=== PATIENT | female | born 1965 | race Two or more races ===

== ENCOUNTER 2020-08-01 08:27 | Outpatient (REF) | payer OTHER, SELFPAY ==
[2020-08-01 10:34] LABS: Free T4 (Free Thyroxine) 0.89 ng/dL (0.71-1.85); Thyroid Stimulating Hormone 1.27 uIU/mL (0.32-4.0)
[2020-08-02 18:32] LABS: Thyroglobulin Antibodies 2 IU/mL (< or = 1); Thyroid Peroxidase Antibodies 814 IU/mL (<9)
== END 2020-08-01 08:28 | disposition home or self-care (01) ==
LOC: HO.LAB 08:27
PROVIDERS: PCP Internal Medicine; Visit Provider Internal Medicine Endocrinology, Diabetes & Metabolism
DX: E03.9 Hypothyroidism, unspecified (principal); E04.1 Nontoxic single thyroid nodule; Z87.891 Personal history of nicotine dependence; Z90.710 Acquired absence of both cervix and uterus; Z95.0 Presence of cardiac pacemaker; Z79.899 Other long term (current) drug therapy
CPT/HCPCS: 36415; 84439; 84443; 86376; 86800; 99202

== ENCOUNTER 2020-08-16 14:10 | Outpatient (REF) | payer OTHER, SELFPAY ==
--- NOTE | ~2020-08-16 | US_ITS ---
EXAMINATION: US THYROID CLINICAL INFORMATION: Nontoxic single thyroid nodule. COMPARISON: None TECHNIQUE: Linear transducer grayscale and color Doppler examination with attention to the region of the thyroid. FINDINGS: SIZE: Measurements of the thyroid lobes and nodules are given in sagittal, anteroposterior and transverse dimensions respectively. Right Thyroid Lobe: 4.80 x 1.73 x 1.30 cm, volume 5.68 mL. Parenchyma: The gland echotexture is heterogeneous. Thyroid vascularity is increased. Left Thyroid Lobe: 4.83 x 1.77 x 1.49 cm, volume 6.67 mL. Parenchyma: The gland echotexture is heterogeneous. Thyroid vascularity is increased. Isthmus: 0.50 cm in maximum AP dimension. Estimated total number of nodules greater than or equal to 1 cm: 1. Merchandising Stock Associate nodules are described as follows: 1. Location: Isthmus. Size: 1.2 x 0.44 x 0.90 cm, volume 0.25 mL. Nodule characteristics: Composition: Solid (2). Echogenicity: Hypoechoic (2). Shape: Not taller than wide (0). Margins: Smooth (0). Echogenic Foci: None (0). ACR TI-RADS total points: 4 ACR TI-RADS category: 4 NODES: No lymphadenopathy is seen in the tissue surrounding the thyroid gland. US/US thyroid IMPRESSION: Heterogeneous hypervascular thyroid gland. Solitary isthmus nodule. According to TI RADS criteria, ultrasound follow-up in 1, 2, 3 and 5 years recommended. ACR TI-RADS RECOMMENDATION REFERENCE: Ultrasound-guided fine-needle aspiration, followup ultrasound, no further follow up. * TR1 (0 point) and TR 2 (2 points): No FNA or follow up * TR3 (3 points): FNA if more than or equal to 2.5 cm in maximum dimension, followup ultrasound in 1, 3 and 5 years if 1.5 to 2.4 cm in maximum dimension. * TR4 (4-6 points): FNA if more than or equal to 1.5 cm in maximum dimension, followup ultrasound in 1, 2, 3 and 5 years if 1 to 1.4 cm in maximum dimension. * TR5 (more than or equal to 7 points): FNA if more than or equal to 1 cm in maximum dimension, followup ultrasound every year for 5 years if 0.5 to 0.9 cm in maximum dimension. * TR3, TR4 or TR5 nodules that are below the size threshold for follow up receive no follow up.
== END 2020-08-16 14:11 | disposition home or self-care (01) ==
LOC: HO.HMGCX 14:10
PROVIDERS: PCP Internal Medicine; Visit Provider Internal Medicine Endocrinology, Diabetes & Metabolism
DX: E04.1 Nontoxic single thyroid nodule (principal); E03.9 Hypothyroidism, unspecified
CPT/HCPCS: 76536

== ENCOUNTER → 2020-08-29 10:45 | Outpatient (BNVA) | payer OTHER, SELFPAY | PROVIDERS: PCP Internal Medicine; Visit Provider Internal Medicine Endocrinology, Diabetes & Metabolism | DX: E03.8 Other specified hypothyroidism (principal); E04.1 Nontoxic single thyroid nodule; E06.3 Autoimmune thyroiditis | CPT/HCPCS: 99212 ==

== ENCOUNTER → 2020-09-05 08:06 | Outpatient (REF) | payer OTHER, SELFPAY ==
--- NOTE | ~2020-09-05 | NM_ITS ---
Myocardial perfusion study Indication: Abnormal EKG to evaluate for myocardial ischemia Technique: The patient was brought in for a Lexiscan perfusion study on 09/05/2020. Patient performed low-level exercise and was injected 0.4 mg of Lexiscan intravenously. Within a minute of injection, 30 mCi of sestamibi was given intravenously. Images were obtained using the SPECT gamma camera interlaced with the gating device. Images were obtained in supine position. Resting perfusion study was performed on 09/06/2020. Patient was administered 30 mCi of sestamibi intravenously at rest. Images were then obtained in supine position. Images obtained with and without CT attenuation. Total DLP 115 mGy-cm. Images were processed with the software and compared side to side in short axis, horizontal long axis and vertical long axis views. Findings: The stress perfusion study showed nonattenuated images show minimal thinning of the anterolateral wall of the LV myocardium. Remainder of the LV myocardium is normally perfused. Attenuation corrected images show mildly reduced uptake in the apex of the LV myocardium.. The gated study shows normal LV systolic function with calculated LVEF of 63%. LV cavity is normal in size. The gated study shows normal systolic wall thickening and contraction of segments. Resting study shows no change in perfusion pattern compared to stress perfusion study. Gating at rest reveals normal systolic wall motion with ejection fraction at 54%. The findings are consistent with normal myocardial perfusion. NM/NM shayna perf SPECT rest & str Impression: 1. Myocardial perfusion imaging study shows normal myocardial perfusion 2. Gated LVEF is 63% 3. Transient ischemic dilatation not present EKG is nondiagnostic for ischemia
--- NOTE | 2020-09-05 08:10 | CA_ITS ---
Acquisition Time: 2020-09-05 08:46:07 Total Exercise Time: 00:02:00 Test Indications: SOB CP Medications: NIFEDIPINE CAREDILOL Protocol: LEXISCAN Max HR: 083 BPM 50% of Pred: 166 BPM Max BP: 130/080 mmHG Max Work Load: 1.0 METS Pharmacological stress test with Lexiscan injection, while sitting and kicking her legs, without anginal symptoms, without arrythmia, with normotensive response to exercise, with nondiagnostic EKG for ischemia. Nuclear images pending. Test reviewed with Dr Mccarty. Referred By: Anton Zayas Overread By: PABLO GARCIA
== END ==
LOC: HO.CARD 08:06
PROVIDERS: PCP Internal Medicine; Visit Provider Internal Medicine Cardiovascular Disease
DX: R94.31 Abnormal electrocardiogram [ECG] [EKG] (principal)
CPT/HCPCS: 78452; 93017; A9500; J0280; J2785

== ENCOUNTER 2021-03-17 09:17 | Outpatient (REF) | payer OTHER, SELFPAY ==
--- NOTE | ~2021-03-17 | MM_ITS ---
EXAMINATION: MM SCREENING DIGITAL BREAST TOMOSYNTHESIS, BILATERAL CLINICAL INFORMATION: Screening. Asymptomatic. Prior yro-gm-qnbmz mammography currently unavailable. The lifetime risk of breast cancer based on the Tyrer-Cuzick Model is 7%. COMPARISON: None. TECHNIQUE: Digital breast tomosynthesis is performed in both the craniocaudal and mediolateral oblique views along with computer-aided detection (CAD). Synthesized 2D images are generated from the tomosynthesis. Additional left MLO and right CC views are provided. FINDINGS: The breasts are heterogeneously dense, which may obscure small masses (ACR BI-RADS breast composition Category c). There is a fine fibronodular parenchymal pattern. No significant mass or architectural abnormality. There are scattered punctate round and some coarse round calcifications scattered throughout both breasts. Ribbon shaped biopsy clip marker present left breast mid upper outer quadrant. There is pacemaker generator overlying and partly obscuring left axilla on MLO view. MM/MM tomosynthesis screening BI IMPRESSION: No mammographic evidence of malignancy. ASSESSMENT: BI-RADS 2: Benign RECOMMENDATION: 1. Routine annual mammography screening. 2. Radiology department staff will attempt to retrieve prior oiq-fu-vgicy mammography to allow for comparison in an addendum report. This patient's information was entered into a reminder system with a target due date for their next mammogram.
== END 2021-03-17 09:18 | disposition home or self-care (01) ==
LOC: HO.MAMMO 09:17
PROVIDERS: Visit Provider Internal Medicine
DX: Z12.31 Encounter for screening mammogram for malignant neoplasm of breast (principal)
CPT/HCPCS: 77063; 77067

== ENCOUNTER 2021-05-04 10:28 | Outpatient (REF) | payer OTHER, SELFPAY ==
--- NOTE | ~2021-05-04 | XR_ITS ---
EXAMINATION: XR LUMBOSACRAL SPINE CLINICAL INFORMATION: Lumbago with right-sided sciatica. COMPARISON: None TECHNIQUE: Three views of the lumbosacral spine. FINDINGS: Mild degenerative changes are present in the lumbosacral spine with some minimal narrowing at L3-L4 and L4-L5. There are spondylitic endplate changes with some mild sclerosis and osteophyte formation. Vertebral body heights are well maintained. No fractures or bony destructive lesions are seen. XR/XR lumbar spine 2-3V IMPRESSION: Mild degenerative changes seen predominantly at L3-L4 and L4-L5.
== END 2021-05-04 10:29 | disposition home or self-care (01) ==
LOC: HO.XRAY 10:28
PROVIDERS: PCP Internal Medicine; Visit Provider Family Medicine
DX: M54.41 Lumbago with sciatica, right side (principal); M54.42 Lumbago with sciatica, left side
CPT/HCPCS: 72100

== ENCOUNTER 2021-07-13 09:32 | Outpatient (REF) | payer OTHER, SELFPAY ==
--- NOTE | 2021-07-13 09:38 | EMG_ITS ---
Bilateral tibial and peroneal motor studies were performed. Bilateral superficial, peroneal, and sural sensory studies were performed. Tibial H reflexes were obtained and paraspinal muscles were tested with a needle. IMPRESSION: 1. 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 2. EMG finding suggestive of myotonic dystrophy. MD MICH Benítez/SUREKHA / [id number]
== END 2021-07-13 09:33 | disposition home or self-care (01) ==
LOC: HO.NEURO 09:32
PROVIDERS: PCP Internal Medicine; Visit Provider Family Medicine
DX: M54.41 Lumbago with sciatica, right side (principal); M54.42 Lumbago with sciatica, left side
CPT/HCPCS: 95886; 95911

== ENCOUNTER 2021-08-22 11:47 | Outpatient (REF) | payer OTHER, SELFPAY ==
--- NOTE | ~2021-08-22 | XR_ITS ---
EXAMINATION: XR CHEST CLINICAL INFORMATION: COPD. COMPARISON: None TECHNIQUE: 2 views of the chest were obtained. FINDINGS: The lungs are well expanded and clear of acute process. The heart size is enlarged. The pulmonary vascularity is normal. There are dual pacer electrodes in the right atrium and right ventricle. No gross bony abnormality seen. XR/XR chest 2V IMPRESSION: Unremarkable chest exam.
== END 2021-08-22 11:48 | disposition home or self-care (01) ==
LOC: HO.XRAY 11:47
PROVIDERS: PCP Internal Medicine; Visit Provider Internal Medicine
DX: R06.09 Other forms of dyspnea (principal); J44.9 Chronic obstructive pulmonary disease, unspecified
CPT/HCPCS: 71046; 99202

== ENCOUNTER 2021-08-30 07:30 | Outpatient (REF) | payer OTHER, SELFPAY ==
--- NOTE | ~2021-08-30 | US_ITS ---
EXAMINATION: US THYROID CLINICAL INFORMATION: Nontoxic single thyroid nodule. COMPARISON: Ultrasound soft tissue head/neck thyroid dated 08/16/2020. TECHNIQUE: Linear transducer grayscale and color Doppler examination with attention to the region of the thyroid. FINDINGS: SIZE: Measurements of the thyroid lobes and nodules are given in sagittal, anteroposterior and transverse dimensions respectively. Right Thyroid Lobe: 4.87 x 2.05 x 1.41 cm, volume 7.39 mL. Previously 4.80 x 1.73 x 1.30 cm, volume 5.68 mL. Parenchyma: The gland echotexture is heterogeneous. Thyroid vascularity is increased. Left Thyroid Lobe: 5.03 x 2.33 x 1.75 cm, volume 10.8 mL. Previously 4.3 x 1.77 x 1.49 cm, volume 6.67 mL. Parenchyma: The gland echotexture is heterogeneous. Thyroid vascularity is increased. Isthmus: 0.70 cm in maximum AP dimension. Previously 0.50 cm. Estimated total number of nodules greater than or equal to 1 cm: 1. Workers Compensation Analyst nodules are described as follows: 1. Location: Isthmus. Size: 1.0 x 0.95 x 0.50 cm, volume 0.23 mL. Previously: 1.2 x 0.90 x 0.44 cm, volume 0.25 mL. Nodule characteristics: Composition: Solid (2). Echogenicity: Isoechoic (1). Shape: Taller than wide (3). Margins: Smooth (0). Echogenic Foci: None (0). ACR TI-RADS total points: 6 Previous: 4 ACR TI-RADS category: 4 Previous: 4 Significant change in size (>/= 20% in 2 dimensions and minimal increase of 2 mm or 50% or greater increase in volume): Change in features: Change in ACR TI-RADS risk category: There is question of 2 additional nodules versus areas of gland heterogeneity. In retrospect, this is probably not appreciably changed from 2020 exam. 2. Location: Isthmus. Size: 0.60 x 0.30 x 0.70 cm, volume 0.06 mL. Previously: Not seen on the previous study. Nodule characteristics: Composition: Solid (2). Echogenicity: Isoechoic (1). Shape: Not taller than wide (0). Margins: Smooth (0). The previously identified left Echogenic Foci: None (0). ACR TI-RADS total points: 3 ACR TI-RADS category: 3 3. Location: Left inferior. Size: 0.60 x 0.70 x 0.50 cm, volume 0.11 mL. Previously: Not seen on the previous study. Nodule characteristics: Composition: Solid (2). Echogenicity: Hyperechoic (1). Shape: Taller than wide (3). Margins: Smooth (0). Echogenic Foci: None (0). ACR TI-RADS total points: 6 ACR TI-RADS category: 4 NODES: There are multiple small cervical lymph nodes seen bilaterally. These are normal in size and demonstrate normal ultrasound morphology and flow. US/US thyroid IMPRESSION: Heterogeneous hypervascular thyroid gland suggestive of thyroiditis. Stable small isthmus nodule. Question isthmus and left inferior pole nodules versus areas of gland heterogeneity. Small bilateral cervical lymph nodes. ACR TI-RADS RECOMMENDATION REFERENCE: Ultrasound-guided fine-needle aspiration, followup ultrasound, no further follow up. * TR1 (0 point) and TR 2 (2 points): No FNA or follow up * TR3 (3 points): FNA if more than or equal to 2.5 cm in maximum dimension, followup ultrasound in 1, 3 and 5 years if 1.5 to 2.4 cm in maximum dimension. * TR4 (4-6 points): FNA if more than or equal to 1.5 cm in maximum dimension, followup ultrasound in 1, 2, 3 and 5 years if 1 to 1.4 cm in maximum dimension. * TR5 (more than or equal to 7 points): FNA if more than or equal to 1 cm in maximum dimension, followup ultrasound every year for 5 years if 0.5 to 0.9 cm in maximum dimension. * TR3, TR4 or TR5 nodules that are below the size threshold for follow up receive no follow up.
[2021-08-30 09:21] LABS: Free T4 (Free Thyroxine) 0.98 ng/dL (0.71-1.85); Thyroid Stimulating Hormone 6.03 uIU/mL (0.32-4.0)
== END 2021-08-30 07:31 | disposition home or self-care (01) ==
LOC: HO.US 07:30
PROVIDERS: PCP Internal Medicine; Visit Provider Internal Medicine Endocrinology, Diabetes & Metabolism
DX: E03.8 Other specified hypothyroidism (principal); E06.3 Autoimmune thyroiditis; E04.1 Nontoxic single thyroid nodule
CPT/HCPCS: 36415; 76536; 84439; 84443

== ENCOUNTER → 2021-09-06 09:12 | Outpatient (BNVA) | payer OTHER, SELFPAY | PROVIDERS: PCP Internal Medicine; Visit Provider Internal Medicine Endocrinology, Diabetes & Metabolism | DX: E03.8 Other specified hypothyroidism (principal); E06.3 Autoimmune thyroiditis; E04.1 Nontoxic single thyroid nodule | CPT/HCPCS: 99212 ==

== ENCOUNTER 2021-09-08 08:59 | Outpatient (REF) | payer OTHER, SELFPAY | END 2021-09-08 09:00 | disposition home or self-care (01) | LOC: HO.LAB 08:59 | PROVIDERS: PCP Internal Medicine; Visit Provider Psychiatry & Neurology Neurology | DX: G62.9 Polyneuropathy, unspecified (principal); E03.8 Other specified hypothyroidism; E06.3 Autoimmune thyroiditis | CPT/HCPCS: 36415; 82550 ==

== ENCOUNTER 2021-09-21 | Outpatient (REF) | payer OTHER, SELFPAY ==
--- NOTE | ~2021-09-21 | CT_ITS ---
EXAMINATION: CT SOFT TISSUE NECK WITHOUT CONTRAST CLINICAL INFORMATION: Swelling, lump reported in throat. COMPARISON: None TECHNIQUE: Helical imaging was performed in the axial plane with generation of coronal and sagittal reformatted images. This CT examination was performed using dose optimization techniques as appropriate, variously including the following: *Automated exposure control *Adjustment of mA and/or kV according to patient size (this includes techniques or standardized protocols for targeted exams where dose is matched to indication/reason for exam; i.e. extremities or head) *Use of iterative reconstruction technique DLP: 474 mGy-cm FINDINGS: No contour abnormality is evident within the oral cavity or pharyngeal mucosal space. The laryngeal structures appear normal. The thyroid gland is grossly unremarkable on this noncontrast exam. There is a lateral retropharyngeal course of the left common carotid artery. There is no cervical adenopathy. The parotid and submandibular glands are grossly normal. No extra mucosal soft tissue mass or fluid collection is visible. The airway is normally maintained. The visualized portions of the brain demonstrate no acute abnormality. There is nahzkpzn-pe-icslit degenerative disc disease with moderate right foraminal narrowing at the C5-C6 level. There is also a reversal of the normal cervical lordosis. The craniovertebral junction appears normal. Small blebs are present at the right lung apex. The orbits are normal. The TMJs are normal in appearance. No periapical lucencies are seen in the dentition. The imaged paranasal sinuses and mastoid air cells are clear. CT/CT soft tissue neck wo con IMPRESSION: No discrete soft tissue abnormality identified on this limited noncontrast examination. No cervical adenopathy. Reversal of the normal cervical lordosis and moderate spondylosis at the C5-C6 level.
== END 2021-09-21 00:01 ==
LOC: HO.CT
PROVIDERS: Visit Provider Emergency Medicine
DX: R22.1 Localized swelling, mass and lump, neck (principal)
CPT/HCPCS: 70490

== ENCOUNTER 2021-09-21 07:36 | Outpatient (REF) | payer OTHER, SELFPAY ==
--- NOTE | 2021-09-21 10:26 | PFT_ITS ---
Forced vital capacity 62%, FEV1 69%, FEV1/FVC ratio is 89. [id number] 111% and MVV 49%. Post bronchodilator therapy, there is a significant improvement in FVC, FEV1, and DBC37-06. Total lung capacity 70%, residual volume 66%. Diffusion capacity 74%. CONCLUSION: Mild restrictive pulmonary disorder. Mild obstructive airway disorder with good response to bronchodilator therapy. These findings are consistent with mild bronchial asthma and mild restrictive pulmonary disorder. Clinical correlation is recommended. Compared to the study of 01/04/2016, the flow volumes as well as the lung volumes are moderately reduced. MD VAN Schofield/SUREKHA / [id number]
== END 2021-09-21 07:37 | disposition home or self-care (01) ==
LOC: HO.RESP 07:36
PROVIDERS: PCP Family Medicine; Visit Provider Internal Medicine
DX: R22.1 Localized swelling, mass and lump, neck (principal); R06.09 Other forms of dyspnea; J44.9 Chronic obstructive pulmonary disease, unspecified
CPT/HCPCS: 94060; 94727; 94729

== ENCOUNTER → 2021-10-19 11:17 | Outpatient (BNVA) | payer OTHER, SELFPAY | PROVIDERS: PCP Internal Medicine; Visit Provider Internal Medicine | DX: R06.09 Other forms of dyspnea (principal); J98.4 Other disorders of lung; J45.909 Unspecified asthma, uncomplicated | CPT/HCPCS: 99212 ==

== ENCOUNTER 2021-10-25 09:48 | Outpatient (REF) | payer OTHER, SELFPAY ==
[2021-10-25 11:11] LABS: Free T4 (Free Thyroxine) 1.01 ng/dL (0.71-1.85); Thyroid Stimulating Hormone 2.13 uIU/mL (0.32-4.0)
== END 2021-10-25 09:49 | disposition home or self-care (01) ==
LOC: HO.LAB 09:48
PROVIDERS: PCP Internal Medicine; Visit Provider Internal Medicine Endocrinology, Diabetes & Metabolism
DX: E03.8 Other specified hypothyroidism (principal); E06.3 Autoimmune thyroiditis
CPT/HCPCS: 36415; 84439; 84443

== ENCOUNTER 2021-10-26 15:15 | Outpatient (REF) | payer OTHER, SELFPAY ==
[2021-10-26 16:17] LABS: Alanine Aminotransferase 23 U/L (0-31); Albumin Level 4.2 g/dL (3.5-5.0); Alkaline Phosphatase 124 U/L (39-117); Anion Gap 13 (12-20); Aspartate Amino Transferase 22 U/L (5-31); Bilirubin Total 0.5 mg/dL (0.0-1.0); Blood Urea Nitrogen 8 mg/dL (9-16); Calcium 10.1 mg/dL (8.4-10.2); Carbon Dioxide 27 mmol/L (22-29); Chloride 106 mmol/L (96-108); Estimated Glomerular Filt Rate > 60; Glucose Random 98 mg/dL (60-115); Potassium 4.1 mmol/L (3.3-5.1); Sodium 142 mmol/L (135-145)
[2021-10-27 16:50] LABS: H Pylori Breath Test Negative (Negative)
== END 2021-10-26 15:16 | disposition home or self-care (01) ==
LOC: HO.LAB 15:15
PROVIDERS: PCP Internal Medicine; Visit Provider Nurse Practitioner
DX: R13.12 Dysphagia, oropharyngeal phase (principal); R10.11 Right upper quadrant pain; K21.9 Gastro-esophageal reflux disease without esophagitis; K59.04 Chronic idiopathic constipation; D12.6 Benign neoplasm of colon, unspecified
CPT/HCPCS: 36415; 80053; 83013; 99202; 99212

== ENCOUNTER → 2021-10-31 13:39 | Outpatient (REF) | payer OTHER, SELFPAY ==
--- NOTE | 2021-10-31 13:41 | CA_ITS ---
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 Normal LV systolic function with mild LVH with grade 1 diastolic dysfunction the possible wall motion abnormality in the basal inferior inferolateral wall 2. Mild aortic regurgitation 3. Mildly dilated ascending aorta at 4.1 cm 4. No gross pericardial effusion Findings Left Ventricle Normal left ventricular size and systolic function. There is mildly increased left ventricular wall thickness. The visually estimated ejection fraction is between 55-60%. Spectral Doppler is indicative of an impaired relaxation filling pattern. E/E prime ratio is <8, consistent with normal filling pressures. Evidence suggests grade I (mild) diastolic dysfunction. Wall Motion Rest Echo Findings The basal inferior and basal inferolateral segments are hypokinetic. All other scored wall segments showed normal motion. Right Ventricle Normal right ventricular cavity size and systolic function. Atria The left atrium is normal in size. There is lipomatous hypertrophy of the interatrial septum. Interatrial shunt cannot be excluded. The right atrium is normal in size. Aortic Valve The aortic valve structure and function is likely normal. There is no aortic valve stenosis. There is mild aortic valve regurgitation. Mitral Valve Normal mitral valve structure and function. There is trace mitral valve regurgitation. There is no mitral valve stenosis. Pulmonic Valve The pulmonic valve was not well visualized. Tricuspid Valve Likely normal tricuspid valve structure and function. Tricuspid regurgitation envelope is inadequate for calculation of right ventricular systolic pressure. Normal right atrial pressure. Great Vessels The pulmonary artery was not well visualized. There is mild dilatation of the ascending aorta measuring 4.10 cm. Venous The inferior vena cava is normal in size and collapses greater than 50% with inspiration. Pericardium/Pleural There is no evidence of pericardial effusion. Prior Study Comparison Changes noted compared to prior study dated: 08/14/2016. possible basal inferior and inferolateral hypokinesis. Measurements 2D Linear Measurements IVSd: 1.27 0.6-0.9/0.6-1.0 cm LVIDd: 5.31 3.9-5.3/4.2-5.9 cm LVIDd Index: 2.81 2.4-3.2/2.2-3.1 cm/m2 LVIDs: 3.69 2.0-3.6 cm LVPWd: 1.24 0.7-1.1 cm LA Diam: 3.10 2.7-3.8/3.0-4.0 cm LAIDs Index: 1.64 1.5-2.3 cm/m2 LV Mass: 341.63 67-162/88-224 g LV Mass Index: 180.76 43-95/49-115 g/m2 LVOT Diam: 2.20 3.0+(-)1.3 cm 2D Systolic Function EF 4C: 60.00 >55% EF 2C: 55.30 >55% EF BiP: 57.80 >55% Mitral Valve MV Pk E: 0.53 MV PK A: 0.88 MV Decel Time: 218.00 E/A: 0.60 E'Lateral: 6.09 E'Medial: 5.22 E/E' Med: 10.10 E/E' Lat: 8.70 PHT: 64.00 MVA PHT: 3.44 Decel [place]: 2.41 Aortic Valve AoV Pk Nicholas: 1.16 AoV Mn Nicholas: 0.80 AoV VTI: 0.23 AoV Pk Grad: 5.00 Aov Mn Grad: 3.00 INGA Cont.VTI: 3.22 AI Pk Nicholas: 4.77 AI [place]: 2.12 LVOT LVOT Pk Nicholas: 1.01 LVOT Mn Nicholas: 0.65 LVOT VTI: 0.19 LVOT Pk Grad: 4.00 LVOT Mn Grad: 2.00 LVOT Diam: 2.20 LVOT Area: 3.80 Diastolic Function MV Pk E: 0.53 MV Pk A: 0.88 E/A: 0.60 E'Medial: 5.22 E/E' Med: 10.10 E' Laterial: 6.09 E/E' Lat: 8.70 Right Ventricle TAPSE (mm): 23.50 TVS' Nicholas: 8.70 Tricuspid Valve RA Press: 3.00 Great Vessels Aorta Sinus of Valsalva: 4.10 2.0-3.5 cm Ao Asc: 4.10 2.1-3.4 cm Pulmonary Valve PV Pk Nicholas: 0.91 Peak PV Grad: 3.00 Updated in Other Vendor System with Status of Final Jens Mccarty MD electronically signed on 11/01/2021 8:54:06 AM with status of Final
== END ==
LOC: HO.CARD 13:39
PROVIDERS: PCP Internal Medicine; Visit Provider Family Medicine
DX: R94.131 Abnormal electromyogram [EMG] (principal)
CPT/HCPCS: 93306

== ENCOUNTER 2021-11-24 10:04 | Outpatient (REF) | payer OTHER, SELFPAY ==
--- NOTE | ~2021-11-24 | FL_ITS ---
EXAMINATION: FL MODIFIED BARIUM SWALLOW CLINICAL INFORMATION: Dysphagia, oropharyngeal phase. COMPARISON: None TECHNIQUE: Modified barium swallow was performed in upright sitting lateral fluoroscopy position in presence of speech therapist. FINDINGS: Following oral administration of various consistencies of food in presence of speech therapist, there is normal of bolus from the oral cavity through the pharynx into esophagus without obstruction, narrowing or stricture. There is mild indentation of proximal posterior thoracic esophageal wall at the level of pacemaker on the x-ray exam. There is no corresponding abnormality on the CT neck exam. FLUOROSCOPY TIME: 3.3 minutes DOSE AREA PRODUCT: 7.817 uGy-m2 (microgray-meter squared) FL/FL barium swallow modified IMPRESSION: Unremarkable modified barium swallow exam. Correlate with speech therapy results.
--- NOTE | 2021-11-24 16:30 | MHC.SL.IMP ---
Date of Plan of Treatment: 11/24/21 Onset of Symptoms/Illness: 11/24/16 Date Treatment Started: 11/24/21 Admitting Diagnosis: Morbid obesity COPD Coronary artery disease Hypertension Hypothyroid Cardiac pacemaker Fibromyalgia syndrome Depression/anxiety GERD Snoring SURGICAL HX: Cardiac pacemaker Vocal cord polyps surgery Hysterectomy Cardiac cath Primary Speech & Language Diagnosis: R13.14 Pharyngoesophageal Phase Dysphagia Reason for Today's Visit: 84048 Modified Barium Swallow Study Pre-evaluation Dietary Consistencies: Regular Pre-evaluation Liquid Consistency: Thin Pre-evaluation Medication Administration: Whole with Liquid Medical History: Modified Barium Swallow Study Fluoroscopic Evaluation of Swallowing Function CPT Code 06786 Evaluation Year: 2021 Reason for Study: Globus sensation Referring Physician: Melanie Betancourt NP Evaluating Clinician: Reina Monzon MA, CCC-EVAPORATOR OPERATOR Study Number: 1 Patient Name: Jerilyn Tijerina Status: Outpatient, Ambulatory Age: 56 Gender: Female MEDICAL HISTORY: Comorbidities: Morbid obesity COPD Coronary artery disease Hypertension Hypothyroid Cardiac pacemaker Fibromyalgia syndrome Depression/anxiety GERD Snoring SURGICAL HX: Cardiac pacemaker Vocal cord polyps surgery Hysterectomy Cardiac cath Current (pre-evaluation) Intake/Diet: Route: PO Diet Grade: Regular Liquid Consistencies: Thin Pre-Study Functional Oral Intake Scale (FOIS): 7- Total oral intake with no restrictions Pain: None reported at time of study SUBJECTIVE: Pt is a 56 year old female referred for a modified barium swallow study (MBSS) by Melanie LOFTON of [facility]. Pt reports onset of dysphagia 5 years ago, stating that the issues have remained consistent, but it ?bothers [her] more when her thyroid is enflamed.? Pt reports globus sensation when eating solids around the sternal notch and needing to drink liquids to ?bring it down.? Pt denies odynophagia. Pt denies coughing or choking. Oral Motor Exam Facial Symmetry: Symmetrical Mouth Occlusion: Normal Oral-Facial Teeth Characteristics: Intact/Normal Oral-Facial Smile (Lips) Description: Normal Oral-Facial Puff Cheeks Description: Normal Tongue Size: Normal Tongue Excursion Description: Normal Tongue Range of Movement Description: Normal Tongue Speed of Movement Description: Normal Tongue Strength of Movement (against opposing pressure): Normal Tongue Movement Characteristics: Normal/Absent Is patient able to manage secretions?: Yes Food and Liquid Trials: Oral Impairment: Lip Closure: 0=No labial escape Oral Impairment: Tongue Control During Bolus Hold: 0=Cohesive bolus between tongue to palatal seal Oral Impairment: Bolus Preparation/Mastication: 1=Slow prolonged chewing/mashing with complete re-collection Oral Impairment: Bolus Transport/Lingual Motion: 2=Slowed tongue motion Oral Impairment: Oral Residue: 0=Complete oral clearance Oral Impairment:Initiation of Pharyngeal Swallow: 3=Bolus head in pyriforms Pharyngeal Impairment: Soft Palate Elevation: 0=No bolus between soft palate (SP)/pharyngeal wall (PW) Pharyngeal Impairment: Laryngeal Elevation: 1=Partial thyroid cartilage/arytenoids to epiglottic petiole movement Pharyngeal Impairment: Anterior Hyoid Excursion: 1=Partial anterior movement Pharyngeal Impairment: Epiglottic Movement: 0=Complete inversion Pharyngeal Impairment: Laryngeal Vestibular Closure:: 0=Complete: no air/contrast in laryngeal vestibule Pharyngeal Impairment: Pharyngeal Stripping Wave: 1=Present: diminished Pharyngeal Impairment: Pharyngeal Contraction: Did not test Pharyngeal Impairment: Pharyngoesophageal Segment Openin=Partial distention/partial duration: partial obstruction of flow Pharyngeal Impairment: Tongue Base (TB) Retraction: 3=Wide column of contrast/air between TB and posterior PW Pharyngeal Impairment: Pharyngeal Residue: 0=Complete pharyngeal clearance Pharyngeal Impairment: Esophageal Clearance Upright Position: 3=Esophageal retention with retrograde flow through PES Impressions and Recommendations Clinical Observations: OBJECTIVE: Time-out: performed at 10:45 Evaluation Start: 10:30; Stop: 10:36 Patient Positioning: Seated 70-90 degrees Viewing Planes: LATERAL ONLY Contrast: MBSImP? Standardized Protocol using commercially prepared, standardized Barium viscosities, including: Varibar? THIN LIQUID (40% w/v, <15 cps) , 1/2 Shortbread Cookie (1 x1 x.25 ) MBSImP ID: [id number] MBSImP Results: Lip closure for intraoral bolus containment resulted in no labial escape. Tongue control during bolus hold maintained a cohesive bolus held between tongue to palate seal. Bolus preparation and mastication resulted in slow, prolonged chewing/mashing but with complete re-collection. Bolus transport/lingual motion was with slowed tongue motion. Oral residue was not observed. There was complete oral clearance. Initiation of the pharyngeal swallow occurred when the bolus head was in the pyriform sinuses. Soft palate elevation resulted in no bolus between the soft palate and the pharyngeal wall. Laryngeal elevation was decreased, with partial superior movement of the thyroid cartilage/partial approximation of the arytenoids to the epiglottic petiole. Anterior hyoid excursion demonstrated partial anterior movement. Epiglottic movement resulted in complete inversion. Laryngeal vestibular closure was complete, as indicated by no air or contrast within the laryngeal vestibule at the height of the swallow. Pharyngeal stripping wave was present, but diminished. Pharyngeal contraction could not be determined due to logistical reasons not related to physiologic impairment. Pharyngoesophageal segment opening demonstrated partial distension/partial duration, with partial obstruction of bolus flow. Tongue base retraction allowed a wide column of contrast or air between the retracted tongue base and the posterior pharyngeal wall. Pharyngeal residue was not present. There was complete pharyngeal clearance. Esophageal clearance in the upright position resulted in esophageal retention with incidence of retrograde bolus flow through the pharyngoesophageal segment. Oral Impairment Score: 6 Pharyngeal Impairment Score: 7 (absence of score, component 13) Esophageal Impairment Score: 3 Laryngeal Penetration and Aspiration: Neither penetration nor aspiration was observed in today's study with Cookie, Thin. Structural Abnormalities Noted: Partial obstruction in the esophagus as noted by radiologist impeded bolus flow ASSESSMENT: Clinician Assessment: This exam was conducted by a multidisciplinary team, which included a speech pathologist, radiologist, and radiology nurse. Pt trialed the following liquid and solid consistencies: thin liquid barium by cup, pureed solid (mixture applesauce with barium paste), ground solid (mixture chicken salad with barium paste), and regular solid (Jacquie Doone cookie coated with barium paste). Oral phase was mildly prolonged and slow, but otherwise unremarkable. Pt demonstrated good lip closure with no labial escape of bolus. Good tongue control with pt forming cohesive bolus between tongue to palatal seal. Mastication was mildly prolonged, characterized by piece meal deglutition pattern. Pt chewed bolus, swallowed partial bolus, chewed remaining bolus, and swallowed again to clear oral cavity. Posterior lingual movement for transport of bolus was slowed. There was complete oral clearance. Pt demonstrated impairments during the pharyngeal and esophageal phases. Pharyngeal swallow trigger was delayed, initiated as bolus head reached pyriform sinuses. There was no nasopharyngeal reflux. Laryngeal elevation was incomplete with partial anterior hyoid excursion. Epiglottic inversion was complete. Complete laryngeal vestibular closure as well. No evidence of aspiration or penetration with intake of solids and liquids during this exam. There was good clearance of the valleculae and pyriform sinuses during the swallow. Noted partial distension/partial duration/partial obstruction of flow through the pharyngoesophageal segment (PES) opening. There was also esophageal retention with retrograde flow back through the PES, with contrast then collecting in the pyriform sinuses. At this point pt swallowed again spontaneously. Pt cleared contrast from the pyriforms with subsequent dry swallows. Observed improved esophageal clearance when pt took smaller bites and sips. The radiologist noted there appeared to be a ?partial obstruction in the esophagus.? Liquid Intake Recommendation: Thin Liquid Intake Strategies: Small Sips, Double Swallow Dietary Recommendations: Regular Medication Administration: Whole with Liquid Please contact the pharmacy regarding appropriate crushable or liquid drug formulations that are available whenever modified delivery is recommended. Compensatory Strategies Recommended: Sitting Upright (90 deg) Double Swallow Small Bites and Sips Alternate Liquids/Solids Rate of Ingestion Change Supervision during eating and or drinking: None Needed Recommendation for Speech Therapy: PLAN: Intake Recommendations: Route: PO Diet Grade: Regular Liquid Consistencies: Thin Post-Study Functional Oral Intake Scale (FOIS): 7- Total oral intake with no restrictions Pt presents with mild to moderate esophageal phase dysphagia. There was no evidence of aspiration or penetration during this exam. There was good oral clearance and good clearance of the valleculae and pyriform sinus upon initial swallow. There was esophageal retention with retrograde flow back through the PES, with contrast then pooling in the pyriform sinuses after the swallow. Pt cleared contrast from the pyriforms with subsequent dry swallows. The radiologist noted there appeared to be a ?partial obstruction in the esophagus.? Recommend continue workup for this with Residential Worker. Recommend continue with unmodified diet regular solids and thin liquids with precautions for esophageal dysphagia:take small bites of food and chew food well, double swallow with each bite, take small, individual sips, avoid ?chugging? of liquids, double swallow with each sip, maintain upright 90 degree position when eating and drinking and for at least 45 minutes afterwards. Therapy Recommendations: Therapy will be discontinued Prognosis for Improvement: The prognosis for the patient to meet nutritional needs by mouth is good based on degree of impairment. Clinician - Supplemental, Miscellaneous Communication: It is important to note MBSS objective studies are snapshots in time and Patient function might vary with factors such as time of day or concomitant medical conditions. For this reason, the final treatment plan for this patient should rest with their medical care team. Additional recommendations should be considered with the totality of the Patient in mind. Thank for the opportunity to participate in the care of this patient. If you have any questions about the content of this report, please contact the [facility] at [facility]. Education: Education regarding findings from today's study and plans for therapy were provided to Patient only through Verbal Instruction. Understanding was expressed by the Patient only. Retail Service Technician Clinician/Clinical Fellow: No Supervisory Statement: N/A Speech Language Pathologist: Reina Monzon M.A., CCC-EVAPORATOR OPERATOR
== END 2021-11-24 10:05 | disposition home or self-care (01) ==
LOC: HO.XRAY 10:04
PROVIDERS: Visit Provider Nurse Practitioner
DX: R13.12 Dysphagia, oropharyngeal phase (principal); R13.14 Dysphagia, pharyngoesophageal phase
CPT/HCPCS: 74230; 92611

== ENCOUNTER 2021-12-14 10:23 | Outpatient (REF) | payer OTHER, SELFPAY ==
--- NOTE | ~2021-12-14 | US_ITS ---
EXAMINATION: US ABDOMEN COMPLETE CLINICAL INFORMATION: Right upper quadrant pain. COMPARISON: None TECHNIQUE: Real-time imaging of the abdominal viscera. FINDINGS: PANCREAS: Normal. ABDOMINAL AORTA: Suboptimal evaluation due to shadowing from overlying bowel gas. Visualized portions demonstrate atherosclerotic disease and normal diameter. INFERIOR VENA CAVA: Visualized portions are normal. LIVER: Increased liver parenchymal echogenicity sparing areas adjacent to the gallbladder fossa. Normal size and shape of the liver. No focal liver lesions. No biliary ductal dilatation. GALLBLADDER: There is a focal hyperechoic observation in the gallbladder wall fundus with associated comet tail artifact, raising the possibility of adenomyomatosis. No gallbladder wall thickening. No pericholecystic free fluid. Negative Ho's sign. COMMON BILE DUCT: Normal in caliber measuring 0.3 cm in diameter. RIGHT KIDNEY: Normal. No hydronephrosis. No renal calculi or focal parenchymal lesions. The kidney measures 10.9 cm in maximum dimension. LEFT KIDNEY: Normal. No hydronephrosis. No renal calculi or focal parenchymal lesions. The kidney measures 11.4 cm in maximum dimension. SPLEEN: Normal. The spleen measures 10.4 cm in maximum dimension. FREE FLUID: None. US/US abdomen complete IMPRESSION: 1. Findings suggesting hepatic steatosis or hepatocellular disease with areas of focal fatty sparing adjacent to the gallbladder fossa. 2. Findings suggestive of gallbladder adenomyomatosis. 3. No evidence of acute cholecystitis. 4. No nephrolithiasis or hydronephrosis.
== END 2021-12-14 10:24 | disposition home or self-care (01) ==
LOC: HO.US 10:23
PROVIDERS: Visit Provider Nurse Practitioner
DX: R10.11 Right upper quadrant pain (principal)
CPT/HCPCS: 76700

== ENCOUNTER 2022-02-14 09:11 | Outpatient (REF) | payer OTHER, SELFPAY ==
[2022-02-19 11:33] LABS: Metanephrine, Free 37 pg/mL (<=57); Normetanephrines, Free 107 pg/mL (<=148); Total Metanephrine, Free 144 pg/mL (<=205)
== END 2022-02-14 09:12 | disposition home or self-care (01) ==
LOC: HO.LAB 09:11
PROVIDERS: PCP Internal Medicine; Visit Provider Physician Assistant Medical
DX: I10 Essential (primary) hypertension (principal); J45.909 Unspecified asthma, uncomplicated; J98.4 Other disorders of lung; R06.09 Other forms of dyspnea
CPT/HCPCS: 36415; 83835; 99212; Q3014

== ENCOUNTER 2022-02-21 09:55 | Outpatient (REF) | payer OTHER, SELFPAY ==
[2022-02-25 12:54] LABS: Metanephrine, Free 24U 88 mcg/24 h (90-315); Normetanephrine, Free 24U 238 mcg/24 h (122-676); Total Metanephrine, Free 24U 326 mcg/24 h (224-832); Total Volume 24U 1400 mL
== END 2022-02-21 09:56 | disposition home or self-care (01) ==
LOC: HO.LNP 09:55
PROVIDERS: Visit Provider Physician Assistant Medical
DX: I10 Essential (primary) hypertension (principal)
CPT/HCPCS: 83835

== ENCOUNTER → 2022-03-14 13:40 | Outpatient (BNVA) | payer OTHER, SELFPAY | PROVIDERS: PCP Internal Medicine; Visit Provider Nurse Practitioner | DX: R13.12 Dysphagia, oropharyngeal phase (principal); K59.04 Chronic idiopathic constipation; K21.9 Gastro-esophageal reflux disease without esophagitis | CPT/HCPCS: 99212 ==

== ENCOUNTER 2022-03-22 09:40 | Outpatient (REF) | payer OTHER, SELFPAY ==
[2022-03-22 10:40] LABS: Free T4 (Free Thyroxine) 1.07 ng/dL (0.71-1.85); Thyroid Stimulating Hormone 4.42 uIU/mL (0.32-4.0)
== END 2022-03-22 09:41 | disposition home or self-care (01) ==
LOC: HO.LAB 09:40
PROVIDERS: PCP Internal Medicine; Visit Provider Internal Medicine Endocrinology, Diabetes & Metabolism
DX: E03.8 Other specified hypothyroidism (principal); E06.3 Autoimmune thyroiditis
CPT/HCPCS: 36415; 84439; 84443

== ENCOUNTER → 2022-03-23 08:53 | Outpatient (BNVA) | payer OTHER, SELFPAY | PROVIDERS: PCP Internal Medicine; Visit Provider Internal Medicine Endocrinology, Diabetes & Metabolism | DX: E03.8 Other specified hypothyroidism (principal); E06.3 Autoimmune thyroiditis; E04.1 Nontoxic single thyroid nodule | CPT/HCPCS: 99212 ==

== ENCOUNTER 2022-03-28 13:07 | Outpatient (REF) | payer OTHER, SELFPAY ==
--- NOTE | ~2022-03-28 | MM_ITS ---
EXAMINATION: MM SCREENING DIGITAL BREAST TOMOSYNTHESIS, BILATERAL CLINICAL INFORMATION: Screening. Asymptomatic. The lifetime risk of breast cancer based on the Tyrer-Cuzick Model is 9.7%. COMPARISON: Mammography: March 17, 2021 and October 31, 2018 TECHNIQUE: Digital breast tomosynthesis is performed in both the craniocaudal and mediolateral oblique views along with computer-aided detection (CAD). Synthesized 2D images are generated from the tomosynthesis. FINDINGS: There are scattered areas of fibroglandular density (ACR BI-RADS breast composition Category b). There are no new significant masses, abnormal calcifications, or other abnormalities. There is multiplicity and bilaterality of calcifications. Left chest wall pacemaker powerpack present. MM/MM tomosynthesis screening BI IMPRESSION: No significant changes from prior exam. ASSESSMENT: BI-RADS 2: Benign RECOMMENDATION: Routine annual mammography screening. This patient's information was entered into a reminder system with a target due date for their next mammogram.
== END 2022-03-28 13:08 | disposition home or self-care (01) ==
LOC: HO.MAMMO 13:07
PROVIDERS: PCP Internal Medicine; Visit Provider Internal Medicine
DX: Z12.31 Encounter for screening mammogram for malignant neoplasm of breast (principal)
CPT/HCPCS: 77063; 77067

== ENCOUNTER → 2022-04-10 13:15 | Outpatient (BNVA) | payer OTHER, SELFPAY | PROVIDERS: PCP Internal Medicine; Visit Provider Nurse Practitioner | DX: K59.04 Chronic idiopathic constipation (principal); K21.9 Gastro-esophageal reflux disease without esophagitis; R13.12 Dysphagia, oropharyngeal phase | CPT/HCPCS: 99212 ==

== ENCOUNTER 2022-06-04 09:12 | Outpatient (REF) | payer OTHER, SELFPAY ==
[2022-06-04 11:28] LABS: Free T4 (Free Thyroxine) 1.27 ng/dL (0.71-1.85); Thyroid Stimulating Hormone 0.08 uIU/mL (0.32-4.0)
== END 2022-06-04 09:13 | disposition home or self-care (01) ==
LOC: HO.LAB 09:12
PROVIDERS: Visit Provider Internal Medicine Endocrinology, Diabetes & Metabolism
DX: E03.8 Other specified hypothyroidism (principal); E06.3 Autoimmune thyroiditis
CPT/HCPCS: 36415; 84439; 84443

== ENCOUNTER 2022-07-04 09:00 | Day surgery (SDC) | payer OTHER, SELFPAY ==
--- NOTE | 2022-07-03 11:55 | P.CONAN_ITS ---
Documented by User: Faye Liriano NP 07/03/22 11:58 HPI - Anesthesia Eval Consult details Narrative: 56yo F for Upper Endoscopy and Colonoscopy Cardiac cleared Pacer in situ (SSS) PMFSH Active Problems Active Problems: All Active Problems (Updated 02/26/22 @ 09:40 by Anju Oglesby RN) Morbid obesity (Acute) Coronary artery disease (Acute) Hypertension (Acute) Fibromyalgia (Acute) Depression with anxiety (Acute) GERD (gastroesophageal reflux disease) (Acute) Snoring (Acute) Chronic idiopathic constipation (Acute) Tubular adenoma of colon (Acute) RUQ abdominal pain (Acute) Oropharyngeal dysphagia (Acute) Asthma (Acute) Restrictive lung disease (Acute) COPD (chronic obstructive pulmonary disease) (Acute) Dyspnea on exertion (Acute) Hypothyroidism (Acute) Thyroid nodule (Acute) Past Medical History Medical History Asthma COPD (chronic obstructive pulmonary disease) Dyspnea on exertion Hypothyroidism Myotonic dystrophy Restrictive lung disease Thyroid nodule Family History Family History Father HTN (hypertension) Diabetes mellitus Mother Cancer Pancreas cancer Maternal Uncle Colon cancer Surgical History Surgical History H/O colonoscopy History of esophagogastroduodenoscopy (EGD) History of lymph node excision Hx of cardiac catheterization Hx of cardiac pacemaker Hx of hysterectomy Social History Social History Household Members: Children Household Members Other:: daughter Alcohol intake: never Patient Tobacco Use Status: Former Tobacco user Years Smoked: 1991 Are you DNR?: No Advance Directives: No Advance Directives Information Provided: Yes Recently lost weight without trying: No Nutrition Risks: No Nutritional Risk Meds Allergies Allergy/AdvReac Type Severity Reaction Status Date / Time No Known Allergies Allergy Verified 04/10/22 13:38 Home Medications Medication Instructions Recorded Confirmed Last Taken Type carvedilol 25 mg tablet 25 mg PO BID 08/01/20 03/23/22 Unknown History escitalopram oxalate 20 mg tablet 20 mg PO DAILY 08/01/20 03/23/22 Unknown History albuterol sulfate 90 mcg/actuation 2 puff inhalation Q6H PRN 08/22/21 03/23/22 Unknown History aerosol inhaler (ProAir HFA) acetaminophen 650 mg 650 mg PO Q8H PRN fever 09/06/21 03/23/22 Unknown History tablet,extended release (Arthritis Pain Relief (acetaminophen) ER) aspirin 81 mg chewable tablet 1 tab PO DAILY 09/06/21 03/23/22 Unknown History atorvastatin 80 mg tablet 80 mg PO DAILY 09/06/21 03/23/22 Unknown History cholecalciferol (vitamin D3) 50 50 mcg PO DAILY 09/06/21 03/23/22 Unknown History mcg (2,000 unit) capsule buspirone 10 mg tablet 10 mg PO BID 10/26/21 03/23/22 Unknown History chlorthalidone 50 mg tablet 50 mg PO DAILY 10/26/21 03/23/22 Unknown History isosorbide mononitrate 60 mg 60 mg PO DAILY 10/26/21 03/23/22 Unknown History tablet,extended release 24 hr nifedipine 90 mg tablet,extended 90 mg PO DAILY 10/26/21 03/23/22 Unknown History release nitroglycerin 0.4 mg sublingual 0 mg sublingual 10/26/21 03/23/22 Unknown History tablet trazodone 50 mg tablet 50 mg PO BEDTIME 10/26/21 03/23/22 Unknown History bupropion HCl 150 mg tablet,12 hr 150 mg PO 03/14/22 03/23/22 Unknown History sustained-release gabapentin 300 mg capsule 300 mg PO BEDTIME 03/14/22 03/23/22 Unknown History hydralazine 25 mg tablet 25 mg PO BID 03/14/22 03/23/22 07/04/22 History hydralazine 50 mg tablet 50 mg PO BID 03/14/22 03/23/22 07/04/22 History sertraline 25 mg tablet 25 mg PO 03/23/22 03/23/22 Unknown History Exam Exam Date and Time: July 03, 2022 1155 Narrative Narrative: ECHO 2021 Conclusions: - 1. Normal LV systolic function with mild LVH with grade 1? ? ? diastolic dysfunction the possible wall motion abnormality in the basal inferior inferolateral wall? 2. Mild aortic regurgitation ? 3. Mildly dilated ascending aorta at 4.1 cm? 4. No gross pericardial effusion ?? Assessment and Plan Assessment Anesthesia Assessment: Chart Reviewed Documented by User: Ella Causey MD 07/04/22 10:23 [facility] Past Medical History Medical History Asthma COPD (chronic obstructive pulmonary disease) Dyspnea on exertion Hypothyroidism Myotonic dystrophy Restrictive lung disease Thyroid nodule Family History Family History Father HTN (hypertension) Diabetes mellitus Mother Cancer Pancreas cancer Maternal Uncle Colon cancer Family history of problems with anesthesia: No Surgical History Surgical History H/O colonoscopy History of esophagogastroduodenoscopy (EGD) History of lymph node excision Hx of cardiac catheterization Hx of cardiac pacemaker Hx of hysterectomy History of Problems with Anesthesia: No Social History Social History Household Members: Children Household Members Other:: daughter Alcohol intake: never Patient Tobacco Use Status: Former Tobacco user Years Smoked: 1991 Are you DNR?: No Advance Directives: No Advance Directives Information Provided: Yes Recently lost weight without trying: No Nutrition Risks: No Nutritional Risk Meds Allergies Allergy/AdvReac Type Severity Reaction Status Date / Time No Known Allergies Allergy Verified 04/10/22 13:38 Home Medications Medication Instructions Recorded Confirmed Last Taken Type carvedilol 25 mg tablet 25 mg PO BID 08/01/20 03/23/22 Unknown History escitalopram oxalate 20 mg tablet 20 mg PO DAILY 08/01/20 03/23/22 Unknown History albuterol sulfate 90 mcg/actuation 2 puff inhalation Q6H PRN 08/22/21 03/23/22 Unknown History aerosol inhaler (ProAir HFA) acetaminophen 650 mg 650 mg PO Q8H PRN fever 09/06/21 03/23/22 Unknown History tablet,extended release (Arthritis Pain Relief (acetaminophen) ER) aspirin 81 mg chewable tablet 1 tab PO DAILY 09/06/21 03/23/22 Unknown History atorvastatin 80 mg tablet 80 mg PO DAILY 09/06/21 03/23/22 Unknown History cholecalciferol (vitamin D3) 50 50 mcg PO DAILY 09/06/21 03/23/22 Unknown History mcg (2,000 unit) capsule buspirone 10 mg tablet 10 mg PO BID 10/26/21 03/23/22 Unknown History chlorthalidone 50 mg tablet 50 mg PO DAILY 10/26/21 03/23/22 Unknown History isosorbide mononitrate 60 mg 60 mg PO DAILY 10/26/21 03/23/22 Unknown History tablet,extended release 24 hr nifedipine 90 mg tablet,extended 90 mg PO DAILY 10/26/21 03/23/22 Unknown History release nitroglycerin 0.4 mg sublingual 0 mg sublingual 10/26/21 03/23/22 Unknown History tablet trazodone 50 mg tablet 50 mg PO BEDTIME 10/26/21 03/23/22 Unknown History bupropion HCl 150 mg tablet,12 hr 150 mg PO 03/14/22 03/23/22 Unknown History sustained-release gabapentin 300 mg capsule 300 mg PO BEDTIME 03/14/22 03/23/22 Unknown History hydralazine 25 mg tablet 25 mg PO BID 03/14/22 03/23/22 07/04/22 History hydralazine 50 mg tablet 50 mg PO BID 03/14/22 03/23/22 07/04/22 History sertraline 25 mg tablet 25 mg PO 03/23/22 03/23/22 Unknown History Exam Airway Mallampati Class: II (implants top front 4 teeth) TM Dist: >3cm Neck ROM: Full Heart: rrr Lungs: cta Assessment and Plan Assessment Anesthesia Assessment: Anesthesia Plan Discussed and Chart Reviewed Final Anesthetic Review Family History of Problems with Anesthesia: No History of Problems with Anesthesia: No NPO: Yes ASA Class: III Final Preanesthetic Review: No Changes in Pt Med Stat, Meds/Allgs Chart Reviewed and Consent Obtained/Reviewed Patient Risk: Intermediate Procedure Risk: Intermediate Anesthetic Plan Anesthetic Plan: MAC: Disposition: Standard PACU
[2022-07-04 08:38] VITALS: BMI 38.5
[2022-07-04 09:37] VITALS: BP 139/85; PULSE 77; RESP 20; TEMP 36.1; O2SAT 96
[2022-07-04] MEDS: Lactated Ringers 1,000 ML 100 ML IVCONT (10:13)
--- NOTE | 2022-07-04 10:19 | PC.NURSE ---
pt sts had surgery in [place] was intubated causing pna everyone aare
--- NOTE | 2022-07-04 11:00 | P.HPSUR_ITS ---
Pre-Procedural Eval Section A Date of Service: 07/04/22 Section B Chief Complaint: Dysphagia, oropharyngeal phase,reflux Details of Present Illness: screening Relevant Family History (Specify if Yes): No Relevant Social History: None Present Medications: see Short Stay Collaborative assessment Medical History: Significant History (Asthma COPD (chronic obstructive pulmonary disease) Dyspnea on exertion Hypothyroidism Myotonic dystrophy Restrictive lung disease Thyroid nodule) History of Previous Operations: Relevant previous surgery/procedure and date(s) (H/O colonoscopy History of esophagogastroduodenoscopy (EGD) History of lymph node excision Hx of cardiac catheterization Hx of cardiac pacemaker Hx of hysterectomy) Allergies: Allergies Allergy/AdvReac Type Severity Reaction Status Date / Time No Known Allergies Allergy Verified 04/10/22 13:38 Review of Systems Sugical H&P ROS: Negative: Constitution, Cardiovascular, Respiratory, Neurological, Psychiatric, Hem-Onc, Allergic/Immunologic, Gastrointestinal, Genitourinary, Musculoskeletal, Integumentary, Endocrine and Eyes/Ears/Nose/Throat Exam Surgical H&P Exam: Normal: HEENT, Normal: Heart, Normal: Lungs, Normal: Extrem ities, Normal: Abdomen, Normal: Skin and Normal: Neurological Plan Diagnosis/Plan: Unchanged I have reviewed the history and physical and performed a pertinent physical examination on my patient. No changes have occurred unless specified. Time Spent With Patient Time: Total time managing care of this patient today ____ minutes.
--- NOTE | 2022-07-04 11:55 | P.OP_ITS ---
Operative Note Operative Note Date of Service: 07/04/22 Narrative: Operative Information Procedure Description: EGD, Colonoscopy Indication: dysphagia and screening colo Anesthesia: MAC FLEXIBLE TRANSORAL UPPER GASTROINTESTINAL ENDOSCOPY AND COLONOSCOPY PROCEDURE NOTE UPPER ENDOSCOPY Consent: Indications for the procedure and potential complications of bleeding, perforation, reaction to medications and missed diagnosis were discussed with the patient and informed consent was obtained. Instrument: Olympus GIF H 190 J mid size upper endoscope Monitoring: Vital signs and clinical assessment, continuous EKG monitoring, Pulse oximetry, Carbon Dioxide monitoring and blood pressure monitoring were done throughout the procedure. Procedure: The patient was placed in the left lateral decubitis position and pre-procedure medications were administered and a bite block was placed. The endoscope was inserted into the mouth and advanced under direct vision to the third part of duodenum. A careful inspection was made as the upper endoscope was withdrawn including a retroflexed examination of the proximal stomach; Findings and interventions are described below. Findings: Larynx:normal Esophagus: GE junction at 42 cm, diaphragm hiatus at 42 cm, some bogginess at GEJ, bx taken aslo from distal and proximal esophagus, balloon dilation to 19 mm at UES and 20 mm at LES- no tears seen Stomach: Patchy erythema and scarring. Biopsies were obtained. Grade 2 flap valve on retroflexed examination of the cardia. Duodenum: Normal bulb and descending duodenum, bx taken Intervention: Biopsies as noted above COLONOSCOPY Instrument: Olympus variable stiffness pediatric scope 190L Colonoscopy Monitoring: Vital signs and clinical assessment, continuous EKG monitoring, Pulse oximetry, Carbon Dioxide monitoring and blood pressure monitoring were done throughout the procedure. Colon withdrawal time was 6 minutes. Procedure: The patient was placed in the left lateral decubitis position and pre-procedure medications were administered. After a digital rectal examination of the ano-rectum, the video colonoscope was inserted into the rectum and advanced through the colon to the cecum/TI. The colonoscope was slowly withdrawn in a retrograde panoramic fashion and the colon mucosa was carefully examined including a retroflexed view of the rectum. Findings and interventions are described below. Procedure Difficulty: easy Findings: Terminal Ileum-not intubated Cecum:normal Ascending Colon: normal Transverse Colon -normal Descending Colon:normal Sigmoid Colon: normal Rectum: Retroflexion with small internal hemorrhoids, grade I Anorectum - normal Colon preparation: [place] Bowel Preparation Scale Right colon; 1 Transverse colon: 1-2 Left colon; 1 (0 = Unprepared colon segment with mucosa not seen due to solid stool that cannot be cleared. 1 = Portion of mucosa of the colon segment seen, but other areas of the colon segment not well seen due to staining, residual stool and/or opaque liquid. 2 = Minor amount of residual staining, small fragments of stool and/or opaque liquid, but mucosa of colon segment seen well. 3 = Entire mucosa of colon segment seen well with no residual staining, small fragments of stool or opaque liquid) Impression and Post Procedure Diagnosis: Endoscopy Findings: atrophic gastritis esophagitis Colonoscopy Findings: internal hemorrhoids poor prep Plan: Await Pathology results Repeat Colonoscopy in 6-8 months due to poor prep with compliance to prep instructions or earlier if clinically indicated High fiber diet leaflet avoid straining at stool, epsom salts and sitz bath, anusol supps or cream check compliance with PPI --if bx neg and ongoing sx then consider manometry Above findings were reviewed with the patient and relevant handouts were provided if indicated.
[2022-07-04 12:05] VITALS: BP 125/69; PULSE 74; RESP 16; TEMP 36.1; O2SAT 97
[2022-07-04 12:20] VITALS: BP 132/94; PULSE 71; RESP 16; TEMP 36.2; O2SAT 97
== END 2022-07-04 12:55 | disposition home or self-care (01) ==
PROVIDERS: PCP Internal Medicine; Visit Provider Internal Medicine Gastroenterology
PROC: (CPT 43249; principal; 2022-07-04 11:00)
DX: Z12.11 Encounter for screening for malignant neoplasm of colon (principal); K59.04 Chronic idiopathic constipation; K64.0 First degree hemorrhoids; Z91.199 Patient's noncompliance with other medical treatment and regimen due to unspecified reason; R13.12 Dysphagia, oropharyngeal phase; K21.9 Gastro-esophageal reflux disease without esophagitis; K20.80 Other esophagitis without bleeding; K29.40 Chronic atrophic gastritis without bleeding; K44.9 Diaphragmatic hernia without obstruction or gangrene; J44.9 Chronic obstructive pulmonary disease, unspecified; G71.11 Myotonic muscular dystrophy; E03.9 Hypothyroidism, unspecified; E04.1 Nontoxic single thyroid nodule; J98.4 Other disorders of lung; J45.909 Unspecified asthma, uncomplicated; R06.09 Other forms of dyspnea; Z79.899 Other long term (current) drug therapy; Z87.891 Personal history of nicotine dependence
CPT/HCPCS: 43249; 43239; G0121; 88305; 88342; C1726

== ENCOUNTER 2022-07-19 09:27 | Outpatient (REF) | payer OTHER, SELFPAY ==
[2022-07-19 12:16] LABS: Free T4 (Free Thyroxine) 1.06 ng/dL (0.71-1.85); Thyroid Stimulating Hormone 0.18 uIU/mL (0.32-4.0)
== END 2022-07-19 09:28 | disposition home or self-care (01) ==
LOC: HO.LAB 09:27
PROVIDERS: Absent Provider Internal Medicine Endocrinology, Diabetes & Metabolism; PCP Internal Medicine; Visit Provider Nurse Practitioner
DX: E03.8 Other specified hypothyroidism (principal); E06.3 Autoimmune thyroiditis; K21.9 Gastro-esophageal reflux disease without esophagitis; K59.04 Chronic idiopathic constipation; R13.12 Dysphagia, oropharyngeal phase; G71.11 Myotonic muscular dystrophy; D12.6 Benign neoplasm of colon, unspecified
CPT/HCPCS: 36415; 84439; 84443; 99212

== ENCOUNTER 2022-09-05 12:47 | Outpatient (AMB) | payer OTHER, SELFPAY ==
[2022-09-05 12:50] VITALS: BP 117/77; PULSE 73; BMI 36.2
--- NOTE | 2022-09-05 12:50 | A.OFFVIS_ITS ---
Intake Vital Signs 09/05/22 12:50 Height 5 ft 1 in Weight 191 lb 12.835 oz BMI 36.2 BP 117/77 Blood Pressure Location Lt brachial Position Sitting Pulse 73 Intake Visit Reasons: 6 week fu Intake Note: Jerilyn presents to in office visit today in follow up of constipation. CC: Patient reports having constipation bloating, nausea, and epigastric pain. She states the new medication for her gastritis is not working and Linzess is not helping her anymore. Denies other GI symptoms. Transformation Coach Required: Yes Transformation Coach Language: Armenian Accompanied by: Daughter Allergies No Known Allergies Allergy (Verified 09/05/22 12:51) HPI 6 week fu HPI Details Assessment & Plan (1) GERD (gastroesophageal reflux disease): ?Code(s): K21.9 - Gastro-esophageal reflux disease without esophagitis ?Plan: Armenian #Charissa, Live. She is here today with a female dtr. Despite the speech therapy report showing possible obstruction of the esophagus there is no evidence of on the upper endoscopy.? It is possible that this is an artifact of esophageal spasm.? OR,? since it is noted that he has myotonic dystrophy this could be an upper GI manifestation of the smooth muscle area mediated by this neurologic condition. i encourage her to discuss this with her neurologist, but also educated on safe swallowing precautions and that the future may necessitate a feeding tube. She still has severe GERD despite o2o qam and famotidine qhs. Will change to aciphex qam or BID depending on insurance. She really hated the taste of the prep, so we will get a lower volume prep for this and for her swallowing problems INs sesms to prefer Suprep so will order htis and get another scope ordered since we are 8 mos out. ROV 6 weeks.? Also after colonoscopy in 8 months. (2) Chronic idiopathic constipation: ?Code(s): K59.04 - Chronic idiopathic constipation (3) Oropharyngeal dysphagia: ?Comment: Gastrointestinal involvement ? In DM1, smooth muscle involvement is more common than in other muscular dystrophies and manifests particularly with gastrointestinal (GI) symptoms such as colicky abdominal pain, constipation, diarrhea, and pseudo-obstruction [120]. Irritable bowel-like symptoms (abdominal pain, bloating, and changes in bowel habits) are common in DM1. Upper GI tract involvement is seen in most patients with classic DM1 and leads to dysphagia with resulting aspiration pneumonia, an important cause of morbidity and mortality in DM1. Gallstones also occur in DM1 because of increased tone of the gall bladder sphincter. The presence and severity of GI disturbances in DM1 correlate poorly with the degree of skeletal muscle involvement, and correlate positively with the duration of skeletal muscle disease [121]. 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 Wheat ?Code(s): G71.11 - Myotonic muscular dystrophy (5) Tubular adenoma of colon: ?Code(s): D12.6 - Benign neoplasm of colon, unspecified ? ? ? Medications: New sodium,potassium,m ag sulfates 17.5-3 .13-1.6 gram (Supr ep Bowel Prep Kit) ?480 mL orally;? 354 mL 0RF D12.6 - Benign george plasm of colon, un specified ? rabeprazole (AcipH ex) 20 mg? PO BID 60 t abs 6RF K21.9 - Gastro-eso phageal reflux dis ease without esoph agitis ? Refilled famotidine (Pepcid ) 40 mg? PO BEDTIME 30 tabs 6RF ? ? Discontinued omeprazole ?? Disc ontinued Reason:? Doctor's Order 40 mg? PO DAILY 30 days 30 caps 6RF A ? ? levothyroxine ?? D iscontinued Reason :? Doctor's OrderF 75 mcg? PO DAILY 3 0 tabs 3RF ? ? TODAY'S VISIT Armenian #Alexx Olivo She has not yet heard to schedule the repeat 6-8 months colonoscopy in this was 2 months ago! She is here with a female family member who is supportive. She received the Aciphex but was only taking it qd, I encourage her to take it bid since the insurance did approve it for this. She can also add the famotidine qhs. This is particularly important because she is not feeling relief with the medication and the EGD does show continued esophageal irritation. She is c/o CIC despite taking the LInzess 145mcg so we will increase it. She is only moving very small amounts of stool, so we will increase it to 290mcg. She has not yet heard for the reschedule of the colonoscopy, will send another note. ROV 3 weeks. [facility] Medical History (Updated 07/19/22 @ 09:40 by ROLLY Ravi) Asthma COPD (chronic obstructive pulmonary disease) Dyspnea on exertion Hypothyroidism Myotonic dystrophy Restrictive lung disease Thyroid nodule Surgical History H/O colonoscopy History of esophagogastroduodenoscopy (EGD) History of lymph node excision Hx of cardiac catheterization Hx of cardiac pacemaker Hx of hysterectomy Family History Father HTN (hypertension) Diabetes mellitus Mother Cancer Pancreas cancer Maternal Uncle Colon cancer Social History Household Members: Children Household Members Other:: daughter Alcohol intake: never Patient Tobacco Use Status: Former Tobacco user Years Smoked: 1991 Review of Systems Const Denies fatigue, Denies fever(s), Denies night sweats, Denies poor appetite and Denies weight loss ENT Reports Normal hearing present, Denies dental pain, Denies dysphagia, Denies hearing loss, Denies mouth pain, Denies odynophagia, Denies throat swelling, Denies tongue swelling and Reports other (Dentition adequate) Card Reports no additional complaints Resp Reports no additional complaints GI Denies abdominal pain, Denies melena, Denies bloating, Denies hematochezia, Reports constipation, Denies GI cramping, Denies dysphagia, Denies excessive flatus, Denies early satiety, Reports dyspepsia, Reports heartburn, Denies diarrhea, Denies nausea, Denies odynophagia, Denies vomiting and Denies hematemesis Skin/Breast Denies pruritus, Denies lesions, Denies rash and Denies jaundice Neuro Reports Normal hearing present and Denies Abnormal speech present Endo Denies fatigue Aller/Immun Denies throat swelling and Denies tongue swelling Physical Exam Vital Signs: Last Vital Signs Pulse 73 09/05/22 12:50 BP 117/77 09/05/22 12:50 BMI result Body Mass Index 36.2 Const General: cooperative, no acute distress, well developed and well groomed Nutritional Appearance: well nourished and obese Orientation/consciousness: oriented to person, oriented to place and oriented to time Limitations: language barrier HEENT Head: Yes normocephalic and Yes atraumatic Eyes General: appearance normal, both eyes and all related structures Pupils: Equal, round and reactive pupils present Neck Neck: Yes normal visual inspection and Yes no lymphadenopathy Thyroid: Thyroid normal Resp Effort & Inspection: normal respiratory effort and able to speak in complete sentences Auscultation: clear to auscultation bilaterally Cardio Rate: regular rate Rhythm: regular rhythm Heart sounds: Normal, physiologic split S2 sound present Peripheral pulses: radial pulses present and posterior tibial pulses present GI Inspection: No distended, Yes Abdominal panniculus present and Yes obesity Palpation (GI): Soft to palpation, nontender, no guarding, not rigid and No hepatosplenomegaly present Percussion: Yes normal to percussion Auscultation: normal bowel sounds Rectal Exam - Female: deferred Skin General skin exam: no rashes or lesions noted, turgor normal, skin not dry, no jaundice, No spider nevi and no striae Rashes: no rashes Nails: normal Neuro General: oriented to person, oriented to place and oriented to time Cranial nerves: Yes Equal, round and reactive pupils present and Yes Normal hearing present Speech: No Abnormal speech present Extrem General: Yes normal to inspection, No clubbing, No cyanosis and No edema Psych Appearance: grossly normal and well kempt Mental Status: mental status grossly normal Speech and movement: Normal speech and movement present Affect: normal affect Attitude: cooperative Thought process: Normal thought process present and not confabulating Thought content: Normal thought content present Insight: Limited insight present (Psych) Judgement: Limited judgement present (Psych) Assessment & Plan Assessment & Plan (1) GERD (gastroesophageal reflux disease): Code(s): K21.9 - Gastro-esophageal reflux disease without esophagitis Plan: Armenian #Loreana Live She tolerated the procedure well. We review the results. She is here with a female family member who is supportive. She received the Aciphex but was only taking it qd, I encourage her to take it bid since the insurance did approve it for this. She can also add the famotidine qhs. This is particularly important because she is not feeling relief with the medication and the EGD does show continued esophageal irritation. She is c/o CIC despite taking the LInzess 145mcg so we will increase it. She is only moving very small amounts of stool, so we will increase it to 290mcg. She has not yet heard for the reschedule of the colonoscopy, will send another note. ROV 3 weeks. (2) Chronic idiopathic constipation: Code(s): K59.04 - Chronic idiopathic constipation Coding Level of Care Code Est Pt Level 3 (72700) Diagnoses GERD (gastroesophageal reflux disease) K21.9 Chronic idiopathic constipation K59.04
== END 2022-09-05 13:09 | disposition home or self-care (01) ==
PROVIDERS: PCP Internal Medicine; Visit Provider Nurse Practitioner
DX: K21.9 Gastro-esophageal reflux disease without esophagitis (principal); K59.04 Chronic idiopathic constipation
CPT/HCPCS: 99213

== ENCOUNTER → 2022-09-05 12:47 | Outpatient (BNVA) | payer OTHER, SELFPAY | PROVIDERS: PCP Internal Medicine; Visit Provider Nurse Practitioner | DX: K59.04 Chronic idiopathic constipation (principal); K21.9 Gastro-esophageal reflux disease without esophagitis | CPT/HCPCS: 99212 ==

== ENCOUNTER 2022-09-18 07:54 | Outpatient (REF) | payer OTHER, SELFPAY ==
[2022-09-18 09:17] LABS: Free T4 (Free Thyroxine) 1.02 ng/dL (0.71-1.85); Thyroid Stimulating Hormone 1.99 uIU/mL (0.32-4.0)
== END 2022-09-18 07:55 | disposition home or self-care (01) ==
LOC: HO.LAB 07:54
PROVIDERS: PCP Internal Medicine; Visit Provider Internal Medicine Endocrinology, Diabetes & Metabolism
DX: E03.9 Hypothyroidism, unspecified (principal); E06.3 Autoimmune thyroiditis
CPT/HCPCS: 36415; 84439; 84443

== ENCOUNTER 2022-09-21 08:29 | Outpatient (AMB) | payer OTHER, SELFPAY ==
--- NOTE | 2022-09-21 08:30 | A.OFFVIS_ITS ---
Intake Vital Signs 09/21/22 08:32 Height 5 ft 1 in Weight 196 lb 3.382 oz BMI 37.1 BP 126/82 Blood Pressure Location Lt brachial Position Sitting Pulse 72 Intake Visit Reasons: f/u hypothyroidism/MNG Intake Note: Patient present for Hypothyroidism/ MNG follow up visit. Spreading Machine Operator Required: Yes Spreading Machine Operator Language: Talcer Name: Yisel Accompanied by: Daughter Allergies No Known Allergies Allergy (Verified 09/21/22 08:35) Medication List - Last Reconciled 09/21/22 by Lemuel Wei MD acetaminophen ER (Arthritis Pain Relief (acetaminophen) ER) 650 mg PO Q8H PRN albuterol sulfate 90 mcg/actuation (ProAir HFA) 2 puffs inhalation Q6H PRN aspirin 1 tab PO DAILY atorvastatin 80 mg PO DAILY bupropion HCl 150 mg PO carvedilol 25 mg PO BID chlorthalidone 50 mg PO QAM duloxetine 20 mg PO DAILY famotidine (Pepcid) 40 mg PO BEDTIME hydralazine 50 mg PO BID isosorbide mononitrate ER 60 mg PO DAILY levothyroxine 75 mcg PO DAILY linaclotide (Linzess) 290 mcg PO QAM 30 days nifedipine ER 90 mg PO DAILY nitroglycerin 0 mg sublingual rabeprazole (AcipHex) 20 mg PO BID sertraline 25 mg PO sodium,potassium,mag sulfates 17.5-3.13-1.6 gram (Suprep Bowel Prep Kit) 480 mL orally; sodium,potassium,mag sulfates 17.5-3.13-1.6 gram (Suprep Bowel Prep Kit) DILUTE; drink full amount early evening before AND next morning at least 6 hr before procedure; follow each bottle w 32 oz. water PO HPI HPI Comments History of Present Illness Details 56-year-old female today for follow-up visit, for thyroid nodules and hypothyroidism She is feeling well. No complaints. 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 She is currently on levothyroxine 75 mcg daily. 100% compliance with LT4, good method of administration. She has history of thyroid nodules she had biopsy 2 years ago. She reports that during the procedure she had bleeding and difficulty breathing and the procedure had to be stop but the biopsy was benign. This happened in [facility], the reports are not available. She also has history of a left submandibular lymph node excision which was benign. She denies cold or heat intolerance, weight loss or gain, diarrhea, positive constipation, denies insomnia, fatigue, dry skin, she is complaining of dysphagia intermittent mostly to solids, denies dyspnea, dysphonia, tremors, palpitations, irritability, anxiety. Family History: Family history of thyroid disease autoimmune. 06/06/2020 TSH 1.51 mIU/mL. Date of Service: 08/16/20 US THYROID Right Thyroid Lobe: 4.80 x 1.73 x 1.30 cm, volume 5.68 mL. Parenchyma: The gland echotexture is heterogeneous. Thyroid vascularity is increased. Left Thyroid Lobe: 4.83 x 1.77 x 1.49 cm, volume 6.67 mL. Parenchyma: The gland echotexture is heterogeneous. Thyroid vascularity is increased. Isthmus: 0.50 cm in maximum AP dimension. Estimated total number of nodules greater than or equal to 1 cm: 1. Skin Care Specialist nodules are described as follows: 1. Location: Isthmus. Size: 1.2 x 0.44 x 0.90 cm, volume 0.25 mL. Nodule characteristics: Composition: Solid (2). Echogenicity: Hypoechoic (2). Shape: Not taller than wide (0). Margins: Smooth (0). Echogenic Foci: None (0). ACR TI-RADS total points: 4 ACR TI-RADS category: 4 NODES: No lymphadenopathy is seen in the tissue surrounding the thyroid gland. Further workup for dysphagia led to a GI cause in the esophagus Laboratory Tests 08/01/20 08/01/20 09:25 09:25 TSH 1.27 Free T4 0.89 Thyroglobulin Anti body 2 H Thyroid Peroxidase Ab 814 H [facility] Medical History (Updated 07/19/22 @ 09:40 by ROLLY Ravi) Asthma COPD (chronic obstructive pulmonary disease) Dyspnea on exertion Hypothyroidism Myotonic dystrophy Restrictive lung disease Thyroid nodule Surgical History H/O colonoscopy History of esophagogastroduodenoscopy (EGD) History of lymph node excision Hx of cardiac catheterization Hx of cardiac pacemaker Hx of hysterectomy Family History Father HTN (hypertension) Diabetes mellitus Mother Cancer Pancreas cancer Maternal Uncle Colon cancer Social History Household Members: Children Household Members Other:: daughter Alcohol intake: never Patient Tobacco Use Status: Former Tobacco user Years Smoked: 1991 Physical Exam Vital Signs: Last Vital Signs Pulse 72 09/21/22 08:32 BP 126/82 09/21/22 08:32 BMI result Body Mass Index 37.1 Const Other: Thyroid gland is increased in size weighs around 20 g . There are no thyroid nodules palpated. Reflexes 2+ DTR. 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 She appears to be clinically and biochemically euthyroid Plan is to continue current therapy. At this point, patient rid turned to the care of her primary care provider. She returned to endocrinology as needed (2) Thyroid nodule: Code(s): E04.1 - Nontoxic single thyroid nodule Plan: Recent thyroid ultrasound show no change in the size of the nodules in a heterogeneous gland consistent with Kathryn's thyroiditis. The plan is for continued observation with repeat ultrasound about 2 years time. This can be ordered by the patient's primary care provider. 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
[2022-09-21 08:32] VITALS: BP 126/82; PULSE 72; BMI 37.1
== END 2022-09-21 09:22 | disposition home or self-care (01) ==
PROVIDERS: PCP Internal Medicine; Visit Provider Internal Medicine Endocrinology, Diabetes & Metabolism
DX: E03.8 Other specified hypothyroidism (principal); E06.3 Autoimmune thyroiditis; E04.1 Nontoxic single thyroid nodule
CPT/HCPCS: 99213

== ENCOUNTER → 2022-09-21 08:29 | Outpatient (BNVA) | payer OTHER, SELFPAY | PROVIDERS: Visit Provider Internal Medicine Endocrinology, Diabetes & Metabolism | DX: E03.8 Other specified hypothyroidism (principal); E06.3 Autoimmune thyroiditis; E04.1 Nontoxic single thyroid nodule | CPT/HCPCS: 99212 ==

== ENCOUNTER 2022-09-26 15:31 | Outpatient (AMB) | payer OTHER, SELFPAY ==
[2022-09-26 15:34] VITALS: BP 142/90; PULSE 80; O2SAT 96; BMI 39.0
--- NOTE | 2022-09-26 15:34 | A.OFFVIS_ITS ---
Intake Vital Signs 09/26/22 15:34 Height 5 ft Weight 199 lb 8.293 oz BMI 39.0 BP 142/90 H Blood Pressure Location Lt brachial Position Sitting Pulse 80 Pulse Source Pulse Oximeter Pulse Oximetry (%) 96 Oxygen Delivery Method Room Air Intake Visit Reasons: copd Intake Note: Pt reports when she wakes up that it is harder to breath and her left lung feels tight. Allergies No Known Allergies Allergy (Verified 09/26/22 16:15) Medication List - Last Reconciled 09/26/22 by Arleth Mederos MD acetaminophen ER (Arthritis Pain Relief (acetaminophen) ER) 650 mg PO Q8H PRN albuterol sulfate 90 mcg/actuation (ProAir HFA) 2 puffs inhalation Q6H PRN aspirin 1 tab PO DAILY atorvastatin 80 mg PO DAILY bupropion HCl 150 mg PO carvedilol 25 mg PO BID chlorthalidone 50 mg PO QAM duloxetine 20 mg PO DAILY famotidine (Pepcid) 40 mg PO BEDTIME hydralazine 50 mg PO BID isosorbide mononitrate ER 60 mg PO DAILY levothyroxine 75 mcg PO DAILY linaclotide (Linzess) 290 mcg PO QAM 30 days nifedipine ER 90 mg PO DAILY nitroglycerin 0 mg sublingual rabeprazole (AcipHex) 20 mg PO BID sertraline 25 mg PO sodium,potassium,mag sulfates 17.5-3.13-1.6 gram (Suprep Bowel Prep Kit) 480 mL orally; sodium,potassium,mag sulfates 17.5-3.13-1.6 gram (Suprep Bowel Prep Kit) DILUTE; drink full amount early evening before AND next morning at least 6 hr before procedure; follow each bottle w 32 oz. water PO Do you need a note to return to daycare/school/sports/work: No HPI copd HPI Details 57 YEARS OLD FEMALE, GROSSLY OBESE, WAS LAST SEEN IN JANUARY 2022. SHE WAS DIAGNOSED TO HAVE MILD RESTRICTIVE PULMONARY DISORDER AND ALSO MILD OBSTRUCTIVE DISORDER WHICH CORRECTED AFTER BRONCHODILATOR THERAPY. THE WORKING DIAGNOSIS WAS MILD BRONCHIAL ASTHMA. SHE HAS BEEN USING ALBUTEROL 2 PUFFS Q 4-6 HOURS ONLY P.R.N.. TODAY SHE COMES BACK BECAUSE, SHE HAS INCREASED SHORTNESS OF BREATH ON WALKING, NOT AT REST. IN ADDITION SHE COMPLAINS OF EPISODES OF SHORTNESS OF BREATH AT NIGHT. WITH THE HELP OF HER DAUGHTER WE WENT INTO DETAIL OF THIS SYMPTOM. WHAT SHE DESCRIBES IS THAT SHE GETS SHE GASPING LIKE FEELING IF SHE LIES DOWN FLAT, SO SHE IS SLEEPING MOSTLY IN A RECLINER. ACCORDING TO HER DAUGHTER SHE DOES HAVE SNORING, AND SHE HAS DISTURB SLEEP. PATIENT DESCRIBES PERIODS OF SOMNOLENCE DURING THE DAYTIME, AND SHE REMAINS TIRED. ACCORDING TO HER DAUGHTER SHE HAS PUT ON SOME WEIGHT DURING THE PAST 1 YEAR. [facility] Medical History (Updated 09/26/22 @ 16:29 by Arleth Mederos MD) Asthma COPD (chronic obstructive pulmonary disease) Dyspnea on exertion Hypothyroidism Myotonic dystrophy TOBIAS (obstructive sleep apnea) Restrictive lung disease Somnolence, daytime Thyroid nodule Surgical History H/O colonoscopy History of esophagogastroduodenoscopy (EGD) History of lymph node excision Hx of cardiac catheterization Hx of cardiac pacemaker Hx of hysterectomy Family History Father HTN (hypertension) Diabetes mellitus Mother Cancer Pancreas cancer Maternal Uncle Colon cancer Social History Household Members: Children Household Members Other:: daughter Alcohol intake: never Patient Tobacco Use Status: Former Tobacco user Years Smoked: 1991 Review of Systems Const All systems reviewed & are unremarkable except as noted in HPI and below Eyes Reports no additional complaints ENT Reports no additional complaints Card Denies chest pain, Denies irregular heart rhythm and Denies leg edema Resp Reports as per HPI Reports no additional complaints Musc Reports no additional complaints Skin/Breast Reports system reviewed and no additional complaints, except as documented Neuro Reports no additional complaints Psych Reports depression (Mild controlled) Endo Reports other (Hypothyroidism being treated) Ramón/Lymph Reports no additional complaints Aller/Immun Reports no additional complaints Physical Exam Vital Signs: Last Vital Signs Pulse 80 09/26/22 15:34 BP 142/90 H 09/26/22 15:34 Pulse Ox 96 09/26/22 15:34 Oxygen Delivery Method Room Air 09/26/22 15:34 BMI result Body Mass Index 39.0 Const Other: SHE DOES HAVE ROUNDED FACE, AND SOMEWHAT SHORT NECK. General: comfortable, no acute distress, alert and awake Orientation/consciousness: patient oriented x3 HEENT Head: Yes normal to inspection General nose exam: No nasal polyps present and No nasal discharge present Face and sinus: Yes sinuses nontender Mouth: oropharynx abnormals (TONGUE IS PLACED BACK, OROPHARYNX IS CROWDED, MALLAMPATI CLASS 4) Throat: Yes posterior oropharynx normal Eyes General: appearance normal, both eyes and all related structures Neck Neck: Yes normal visual inspection, Yes no lymphadenopathy, Yes trachea midline, Yes no JVD and Yes other (NECK SIZE 15-1/2 INCH) Thyroid: Thyroid normal Chest Chest palpation & inspection: normal inspection of the chest, normal palpation of entire chest wall and no tenderness Resp Other: Percussion note is resonant, she has equal breath sounds on both sides. The breath sounds are slightly distant and decreased over the bases. No wheezes or crepitations are heard. Cardio Palpation: normal PMI Rate: regular rate Rhythm: regular rhythm Heart sounds: no gallops and no murmurs GI Palpation (GI): Soft to palpation, nontender, No hepatosplenomegaly present and no masses Auscultation: normal bowel sounds Back/Spine/Pelvis Thoracic/Lumbar Spine: thoracic and lumbar spine normal to inspection Skin General skin exam: no rashes or lesions noted Neuro General: patient oriented x3 and no focal motor deficits Cranial nerves: Yes CN's II-XII intact bilaterally Extrem General: Yes normal to inspection, Yes no clubbing, cyanosis or edema and Yes no calf tenderness Psych Appearance: grossly normal and well kempt Speech and movement: Normal speech and movement present Results Reviewed Results Reviewed: Once again I reviewed the results of pulmonary function test performed on 09/21/2021. She does have mild restrictive pulmonary disorder with TLC 70% and FVC 62%, Flow volumes are normal, but there was response to bronchodilator therapy. Assessment & Plan Assessment & Plan (1) Morbid obesity: Comment: Patient has gained some weight during the past year. Current BMI 39.0 ( close to morbid obesity ) Code(s): E66.01 - Morbid (severe) obesity due to excess calories (2) Asthma: Comment: Reviewed the results of pulmonary function test, Patient does have mild obstructive airway disorder with good response to bronchodilator therapy. Results consistent with bronchial asthma. Explained to the patient and her daughter. TX: Use ProAir 2 puffs Q 6 4-6 hours p.r.n. if any wheezing , but not just for shortness of breath on walking. Code(s): J45.909 - Unspecified asthma, uncomplicated (3) Dyspnea on exertion: Comment: Dyspnea on exertion is mild to moderate, It is probably due to mild to moderate restrictive disorder, due to her obesity. Advised to lose weight, in do deep breathing exercises. Code(s): R06.09 - Other forms of dyspnea (4) Somnolence, daytime: Comment: Patient does have disturb sleep at night, And resultant daytime sleepiness. She tends to fall asleep if she is sitting after breakfast of or after lunch. Also falls asleep if she is watching. TV or reading some books This is secondary to weight gain and also possible obstructive sleep apnea. Code(s): R40.0 - Somnolence (5) TOBIAS (obstructive sleep apnea): Comment: Patient has typical facial features suggesting obstructive sleep apnea. , snoring poor sleep at night, and daytime somnolence, all suggest that she may have obstructive sleep apnea. PLAN : WILL DO A HOME-BASED SLEEP STUDY. EXPLAINED TO THE PATIENT AND HER DAUGHTER. THEY THINK THEY CAN HAVE THE STUDY DONE AT HOME. Code(s): G47.33 - Obstructive sleep apnea (adult) (pediatric) Coding Level of Care Code Est Pt Level 4 (50351) Diagnoses Morbid obesity E66.01 Asthma J45.909 Dyspnea on exertion R06.09 Somnolence, daytime R40.0 TOBIAS (obstructive sleep apnea) G47.33
== END 2022-09-26 16:15 | disposition home or self-care (01) ==
PROVIDERS: PCP Internal Medicine; Visit Provider Internal Medicine
DX: E66.01 Morbid (severe) obesity due to excess calories (principal); J45.909 Unspecified asthma, uncomplicated; R06.09 Other forms of dyspnea; R40.0 Somnolence; G47.33 Obstructive sleep apnea (adult) (pediatric)
CPT/HCPCS: 99214

== ENCOUNTER → 2022-09-26 15:31 | Outpatient (BNVA) | payer OTHER, SELFPAY | PROVIDERS: PCP Internal Medicine; Visit Provider Internal Medicine | DX: J45.909 Unspecified asthma, uncomplicated (principal); R40.0 Somnolence; G47.33 Obstructive sleep apnea (adult) (pediatric); R06.09 Other forms of dyspnea; E66.01 Morbid (severe) obesity due to excess calories; Z68.39 Body mass index [BMI] 39.0-39.9, adult | CPT/HCPCS: 99212 ==

== ENCOUNTER 2022-09-27 11:01 | Outpatient (REF) | payer OTHER, SELFPAY ==
--- NOTE | ~2022-09-27 | XR_ITS ---
EXAMINATION: XR KNEE, LEFT CLINICAL INFORMATION: Pain and swelling left knee COMPARISON: None available. TECHNIQUE: 5 views of the left knee. FINDINGS: No fracture or joint effusion. Alignment is anatomic. Joint spaces are maintained. No abnormal soft tissue calcification. XR/XR knee LT 4V IMPRESSION: Normal left knee.
== END 2022-09-27 11:02 | disposition home or self-care (01) ==
LOC: HO.HHCX 11:01
PROVIDERS: Visit Provider Pediatrics
DX: M25.562 Pain in left knee (principal)
CPT/HCPCS: 73564; 99212

== ENCOUNTER 2022-09-27 11:24 | Outpatient (REF) | payer OTHER, SELFPAY ==
[2022-09-27 13:53] LABS: Appearance Urine Clear; Color Urine Yellow; Glucose Urine UA Negative (Negative); Leukocyte Esterase Urine Small (1+) (Negative); Nitrite Urine Negative (Negative); PH 6.5 (5.0-9.0); Specific Gravity - Urine 1.025 (1.005-1.025); UMIC TRIGGER UA YES; Urine Blood Negative (Negative); Urine Ketones Negative (Negative); Urine Protein Trace mg/dL (Neg-Trace)
[2022-09-27 14:01] LABS: Bacteria Urine Trace (None Seen); Hyaline Casts Urine 0-2 /LPF (0-2); WBC Urine 0-5 /HPF (0-5)
== END 2022-09-27 11:25 | disposition home or self-care (01) ==
LOC: HO.HHCL 11:24
PROVIDERS: Visit Provider Pediatrics
DX: R30.0 Dysuria (principal); M25.562 Pain in left knee; M25.462 Effusion, left knee
CPT/HCPCS: 81001; 87086

== ENCOUNTER 2022-09-27 14:48 | Outpatient (AMB) | payer OTHER, SELFPAY ==
--- NOTE | 2022-09-27 15:11 | MHC.OFFVIS ---
Intake Vital Signs 09/27/22 15:29 Height 5 ft Weight 199 lb BMI 38.9 BP 120/70 Blood Pressure Location Rt brachial Position Sitting Pulse 74 Intake Visit Reasons: 3 week follow up Intake Note: Jerilyn presents to in office visit today in follow up of constipation. CC: Patient reports concerns about weight gain, and bloating. She c/o epigastric pain and GERD. Denies other GI symptoms. Tobacco Stripper Hand Required: Yes Tobacco Stripper Hand Language: Belgian Accompanied by: Self / Same As Patient Allergies No Known Allergies Allergy (Verified 09/26/22 16:15) HPI 3 week follow up HPI Details Assessment & Plan (1) GERD (gastroesophageal reflux disease): ?Code(s): K21.9 - Gastro-esophageal reflux disease without esophagitis ?Plan: [place] #[facility] She tolerated the procedure well.? We review the results. She is here with a female family member who is supportive. She received the Aciphex but was only taking it qd, I encourage her to take it bid since the insurance did approve it for this. She can also add the famotidine qhs.? This is particularly important because she is not feeling relief with the medication and the EGD does show continued esophageal irritation. She is c/o CIC despite taking the LInzess 145mcg so we will increase it. She is only moving very small amounts of stool, so we will increase it to 290mcg. She has not yet heard for the reschedule of the colonoscopy, will send another note. ROV 3 weeks. (2) Chronic idiopathic constipation: ?Code(s): K59.04 - Chronic idiopathic constipation CORRESPONDENCE On 09/12/22 @ 14:10 Chelita Owen Wrote To SerafinMay no worries - thanks! On 09/12/22 @ 14:05 Melanie Betancourt Wrote To Chelita Owen She is correct and I seemed to have short circuited that day. I just sent the 290 rx. On 09/12/22 @ 13:27 Chelita Owen Wrote To SerafinMay patient states at last visit you discussed increasing Linzess to 290mcg. please advise. I did sent a few other refills as requested, as she states pharmacy never received the scripts. COLONOSCOPY not yet scheduled BIOPSY TODAY'S VISIT Belgian #[id number] Roman She received the Linzess and at 290 mcg this is moving her bowels well. She is satisfied with this. However, she continues to have severe acid reflux and epigastric pain with a feeling like there is ?a ball? at the level of her bra line. This is despite taking AcipHex twice a day. Obviously this does not seem to be the right medication for her so were going to switch up. Were going to try to move her to lansoprazole 30 mg twice a day and a dose of liquid Carafate at bedtime. She does have a lot of cardiac medications so I do not want to expand the Carafate to any more frequent dosing schedule as it may interfere with the absorption of these other medications. She has not yet heard to have the colonoscopy rescheduled. Return office visit in 3 weeks to evaluate her response to these medications. She has a doorknob complaint of wanting to lose weight because she understands that this could also be impacting her GERD control. I will refer her to Weight Management; as she is morbidly obese and does have many risk factors including sleep apnea coronary artery disease and restrictive lung disease. I have given her the phone number to call try to get things started. [facility] Medical History Asthma COPD (chronic obstructive pulmonary disease) Dyspnea on exertion Hypothyroidism Myotonic dystrophy TOBIAS (obstructive sleep apnea) Restrictive lung disease Somnolence, daytime Thyroid nodule Surgical History H/O colonoscopy History of esophagogastroduodenoscopy (EGD) History of lymph node excision Hx of cardiac catheterization Hx of cardiac pacemaker Hx of hysterectomy Family History Father HTN (hypertension) Diabetes mellitus Mother Cancer Pancreas cancer Maternal Uncle Colon cancer Social History Household Members: Children Household Members Other:: daughter Alcohol intake: never Patient Tobacco Use Status: Former Tobacco user Years Smoked: 1991 Review of Systems Const Denies fatigue, Denies fever(s), Denies night sweats, Denies poor appetite and Denies weight loss ENT Reports Normal hearing present, Denies dental pain, Denies dysphagia, Denies hearing loss, Denies mouth pain, Denies odynophagia, Denies throat swelling, Denies tongue swelling and Reports other (Dentition adequate) Card Reports no additional complaints and Reports dyspnea on exertion Resp Reports dyspnea on exertion GI Denies abdominal pain, Denies melena, Denies bloating, Denies hematochezia, Reports constipation, Denies GI cramping, Denies dysphagia, Denies excessive flatus, Denies early satiety, Reports heartburn, Denies diarrhea, Denies nausea, Denies odynophagia, Denies vomiting and Denies hematemesis Skin/Breast Denies pruritus, Denies lesions, Denies rash and Denies jaundice Neuro Reports Normal hearing present and Denies Abnormal speech present Endo Denies fatigue Aller/Immun Denies throat swelling and Denies tongue swelling Physical Exam Vital Signs: Last Vital Signs Pulse 74 09/27/22 15:29 BP 120/70 09/27/22 15:29 BMI result Body Mass Index 38.9 Const General: cooperative, no acute distress, well developed and well groomed Nutritional Appearance: well nourished and obese morbidly obese Orientation/consciousness: oriented to person, oriented to place and oriented to time Limitations: language barrier and ambulation with cane HEENT Head: Yes normocephalic and Yes atraumatic Eyes General: appearance normal, both eyes and all related structures Pupils: Equal, round and reactive pupils present Neck Neck: Yes normal visual inspection and Yes no lymphadenopathy Thyroid: Thyroid normal Resp Effort & Inspection: normal respiratory effort and able to speak in complete sentences Auscultation: clear to auscultation bilaterally Cardio Rate: regular rate Rhythm: regular rhythm Heart sounds: Normal, physiologic split S2 sound present Peripheral pulses: radial pulses present and posterior tibial pulses present GI Inspection: No distended, Yes Abdominal panniculus present and Yes obesity Palpation (GI): Soft to palpation, Tenderness to palpation present (GI) in the epigastrum, no guarding, not rigid and No hepatosplenomegaly present Percussion: Yes normal to percussion Auscultation: normal bowel sounds Rectal Exam - Female: deferred Skin General skin exam: no rashes or lesions noted, turgor normal, skin not dry, no jaundice, No spider nevi and no striae Rashes: no rashes Nails: normal Neuro General: oriented to person, oriented to place and oriented to time Cranial nerves: Yes Equal, round and reactive pupils present and Yes Normal hearing present Speech: No Abnormal speech present Extrem General: Yes normal to inspection, No clubbing, No cyanosis and No edema Psych Appearance: grossly normal and well kempt Mental Status: mental status grossly normal Speech and movement: Normal speech and movement present Affect: normal affect Attitude: cooperative Thought process: Normal thought process present and not confabulating Thought content: Normal thought content present Insight: Limited insight present (Psych) Judgement: Limited judgement present (Psych) Assessment & Plan Assessment & Plan (1) GERD (gastroesophageal reflux disease): Code(s): K21.9 - Gastro-esophageal reflux disease without esophagitis Plan: Belgian #[id number] [facility] She received the Linzess and at 290 mcg this is moving her bowels well. She is satisfied with this. However, she continues to have severe acid reflux and epigastric pain with a feeling like there is ?a ball? at the level of her bra line. This is despite taking AcipHex twice a day. Obviously this does not seem to be the right medication for her so were going to switch up. Were going to try to move her to lansoprazole 30 mg twice a day and a dose of liquid Carafate at bedtime. She does have a lot of cardiac medications so I do not want to expand the Carafate to any more frequent dosing schedule as it may interfere with the absorption of these other medications. She has not yet heard to have the colonoscopy rescheduled. Return office visit in 3 weeks to evaluate her response to these medications. She has a doorknob complaint of wanting to lose weight because she understands that this could also be impacting her GERD control. I will refer her to Weight Management; as she is morbidly obese and does have many risk factors including sleep apnea coronary artery disease and restrictive lung disease. I have given her the phone number to call try to get things started.. (2) Chronic idiopathic constipation: Code(s): K59.04 - Chronic idiopathic constipation (3) Erosive esophagitis: Code(s): K22.10 - Ulcer of esophagus without bleeding (4) Oropharyngeal dysphagia: Comment: Gastrointestinal involvement ? In DM1, smooth muscle involvement is more common than in other muscular dystrophies and manifests particularly with gastrointestinal (GI) symptoms such as colicky abdominal pain, constipation, diarrhea, and pseudo-obstruction [120]. Irritable bowel-like symptoms (abdominal pain, bloating, and changes in bowel habits) are common in DM1. Upper GI tract involvement is seen in most patients with classic DM1 and leads to dysphagia with resulting aspiration pneumonia, an important cause of morbidity and mortality in DM1. Gallstones also occur in DM1 because of increased tone of the gall bladder sphincter. The presence and severity of GI disturbances in DM1 correlate poorly with the degree of skeletal muscle involvement, and correlate positively with the duration of skeletal muscle disease [121]. Code(s): R13.12 - Dysphagia, oropharyngeal phase (5) Morbid obesity: Comment: Patient has gained some weight during the past year. Current BMI 39.0 ( close to morbid obesity ) Code(s): E66.01 - Morbid (severe) obesity due to excess calories (6) TOBIAS (obstructive sleep apnea): Comment: Patient has typical facial features suggesting obstructive sleep apnea. , snoring poor sleep at night, and daytime somnolence, all suggest that she may have obstructive sleep apnea. PLAN : WILL DO A HOME-BASED SLEEP STUDY. EXPLAINED TO THE PATIENT AND HER DAUGHTER. THEY THINK THEY CAN HAVE THE STUDY DONE AT HOME. Code(s): G47.33 - Obstructive sleep apnea (adult) (pediatric) (7) Coronary artery disease: Code(s): I25.10 - Atherosclerotic heart disease of [place] coronary artery without angina pectoris (8) Restrictive lung disease: Comment: Pulmonary function test showed mild to moderate degree of restrictive disorder, Most likely related to obesity. Advised to lose some weight , Also advised to do deep breathing exercises 2 to 3 times a day. Code(s): J98.4 - Other disorders of lung Orders: Referrals Medical Weight Management Referral E66.01 - Morbid (severe) obesity due to excess calories, G47.33 - Obstructive sleep apnea (adult) (pediatric), I25.10 - Atherosclerotic heart disease of [place] coronary artery without angina pectoris, J98.4 - Other disorders of lung Medications: New lansoprazole 30 mg PO BID 60 caps 6RF K22.10 - Ulcer of esophagus without bleeding, R13.12 - Dysphagia, oropharyngeal phase sucralfate (Carafate) 20 mL PO BEDTIME 1,000 mL 0RF K22.10 - Ulcer of esophagus without bleeding Discontinued famotidine Discontinued Reason: Doctor's Order 40 mg PO BEDTIME 30 tabs 6RF rabeprazole Discontinued Reason: Doctor's Order 20 mg PO BID 60 tabs 6RF K21.9 - Gastro-esophageal reflux disease without esophagitis Coding Level of Care Code Est Pt Level 4 (21151) Diagnoses GERD (gastroesophageal reflux disease) K21.9 Chronic idiopathic constipation K59.04 Erosive esophagitis K22.10 Oropharyngeal dysphagia R13.12 Morbid obesity E66.01 TOBIAS (obstructive sleep apnea) G47.33 Coronary artery disease I25.10 Restrictive lung disease J98.4 Time Spent (min) 44 Comment Thirty-nine [id number] 5 chart
[2022-09-27 15:29] VITALS: BP 120/70; PULSE 74; BMI 38.9
== END 2022-09-27 15:57 | disposition home or self-care (01) ==
PROVIDERS: PCP Internal Medicine; Visit Provider Nurse Practitioner
DX: K21.9 Gastro-esophageal reflux disease without esophagitis (principal); K59.04 Chronic idiopathic constipation; K22.10 Ulcer of esophagus without bleeding; R13.12 Dysphagia, oropharyngeal phase; E66.01 Morbid (severe) obesity due to excess calories; G47.33 Obstructive sleep apnea (adult) (pediatric); I25.10 Atherosclerotic heart disease of native coronary artery without angina pectoris; J98.4 Other disorders of lung
CPT/HCPCS: 99214

== ENCOUNTER → 2022-10-30 15:01 | Outpatient (BNVA) | payer OTHER, SELFPAY | PROVIDERS: PCP Internal Medicine; Visit Provider Physician Assistant Surgical ==

== ENCOUNTER 2022-11-02 11:36 | Outpatient (AMB) | payer OTHER, SELFPAY ==
--- NOTE | 2022-11-02 11:44 | MHC.OFFVIS ---
Intake Vital Signs 11/02/22 11:47 Height 5 ft Weight 197 lb 1.492 oz BMI 38.5 BP 139/67 Blood Pressure Location Lt brachial Position Sitting Pulse 75 Intake Visit Reasons: 3 week follow up Intake Note: Jerilyn presents to in office visit today in 3 weeks follow up of constipation. CC: Patient reports she continues to have symptoms of GERD and epigastric pain. Patient reports she feels that the medication she was taking before works better that lansoprazole for her symptoms. She also reports dark stools for about a week. Director Search Marketing Strategies Required: Yes Director Search Marketing Strategies Language: Bur[place]ian Accompanied by: Self / Same As Patient Allergies No Known Allergies Allergy (Verified 10/30/22 15:47) HPI 3 week follow up HPI Details Assessment & Plan (1) GERD (gastroesophageal reflux disease): Code(s): K21.9 - Gastro-esophageal reflux disease without esophagitis Plan: [place] #[id number] Roman She received the Linzess and at 290 mcg this is moving her bowels well. She is satisfied with this. However, she continues to have severe acid reflux and epigastric pain with a feeling like there is ?a ball? at the level of her bra line. This is despite taking AcipHex twice a day. Obviously this does not seem to be the right medication for her so were going to switch up. Were going to try to move her to lansoprazole 30 mg twice a day and a dose of liquid Carafate at bedtime. She does have a lot of cardiac medications so I do not want to expand the Carafate to any more frequent dosing schedule as it may interfere with the absorption of these other medications. She has not yet heard to have the colonoscopy rescheduled. Return office visit in 3 weeks to evaluate her response to these medications. She has a doorknob complaint of wanting to lose weight because she understands that this could also be impacting her GERD control. I will refer her to Weight Management; as she is morbidly obese and does have many risk factors including sleep apnea coronary artery disease and restrictive lung disease. I have given her the phone number to call try to get things started.. (2) Chronic idiopathic constipation: Code(s): K59.04 - Chronic idiopathic constipation (3) Erosive esophagitis: Code(s): K22.10 - Ulcer of esophagus without bleeding (4) Oropharyngeal dysphagia: Comment: Gastrointestinal involvement ? In DM1, smooth muscle involvement is more common than in other muscular dystrophies and manifests particularly with gastrointestinal (GI) symptoms such as colicky abdominal pain, constipation, diarrhea, and pseudo-obstruction [120]. Irritable bowel-like symptoms (abdominal pain, bloating, and changes in bowel habits) are common in DM1. Upper GI tract involvement is seen in most patients with classic DM1 and leads to dysphagia with resulting aspiration pneumonia, an important cause of morbidity and mortality in DM1. Gallstones also occur in DM1 because of increased tone of the gall bladder sphincter. The presence and severity of GI disturbances in DM1 correlate poorly with the degree of skeletal muscle involvement, and correlate positively with the duration of skeletal muscle disease [121]. Code(s): R13.12 - Dysphagia, oropharyngeal phase (5) Morbid obesity: Comment: Patient has gained some weight during the past year. Current BMI 39.0 ( close to morbid obesity ) Code(s): E66.01 - Morbid (severe) obesity due to excess calories (6) TOBIAS (obstructive sleep apnea): Comment: Patient has typical facial features suggesting obstructive sleep apnea. , snoring poor sleep at night, and daytime somnolence, all suggest that she may have obstructive sleep apnea. PLAN : WILL DO A HOME-BASED SLEEP STUDY. EXPLAINED TO THE PATIENT AND HER DAUGHTER. THEY THINK THEY CAN HAVE THE STUDY DONE AT HOME. Code(s): G47.33 - Obstructive sleep apnea (adult) (pediatric) (7) Coronary artery disease: Code(s): I25.10 - Atherosclerotic heart disease of [place] coronary artery without angina pectoris (8) Restrictive lung disease: Comment: Pulmonary function test showed mild to moderate degree of restrictive disorder, Most likely related to obesity. Advised to lose some weight , Also advised to do deep breathing exercises 2 to 3 times a day. Code(s): J98.4 - Other disorders of lung Orders: Referrals Medical Weight Man agement Referral E66.01 - Morbid (s evere) obesity due to excess calorie s, G47.33 - Obstru ctive sleep apnea (adult) (pediatric ), I25.10 - Athero sclerotic heart di sease of [place] co ronary artery with out angina pectori s, J98.4 - Other d isorders of lung Medications: New lansoprazole 30 mg PO BID 60 ca ps 6RF K22.10 - Ulcer of esophagus without bleeding, R13.12 - Dysphagia, oropha ryngeal phase sucralfate (Carafa te) 20 mL PO BEDTIME 1 ,000 mL 0RF K22.10 - Ulcer of esophagus without bleeding Discontinued famotidine Disc ontinued Reason: Doctor's Order 40 mg PO BEDTIME 30 tabs 6RF rabeprazole Dis continued Reason: Doctor's Order 20 mg PO BID 60 t abs 6RF K21.9 - Gastro-eso phageal reflux dis ease without esoph agitis CORRESPONDENCE On 09/12/22 @ 14:10 Chelita Owen Wrote To Serafin no worries - thanks! On 09/12/22 @ 14:05 SerafinMelanie Wrote To Chelita Owen She is correct and I seemed to have short circuited that day. I just sent the 290 rx. On 09/12/22 @ 13:27 Chelita Owen Wrote To Betancourt patient states at last visit you discussed increasing Linzess to 290mcg. please advise. I did sent a few other refills as requested, as she states pharmacy never received the scripts. COLONOSCOPY BIOPSY On 09/05/22 @ 13:19 Earline Murry Wrote To [facility] due feb 2022. added alert Earline Murry completed item. On 09/05/22 @ 13:04 SerafinMelanie Wrote To [facility] Pt needs a repeat of colonoscopy 8 mos from 06/[address] Ware, still waiting for date. TODAY'S VISIT [place] #Marivel LIve She received the lansoprazole, but it did not work well at all and she did better on the Aciphex. I will try getting this 2 tabs bid. She is taking the carafate liquid, and she finds this helpful, but I again educate her that we can not expand the timing of this medication or it will interfere with other medications. She still struggles with swallowing, and is c/o waking up with either a white/white tongue or a black tongue. White could be the carafate, but I am unsure about the black. 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 She sees Dr. Wheat for the neuro. She has the feeling of gastric contents in the throat when she lays down, and we discuss using risers under the HOB. This condition is difficult to control given the multifatorial nature of the disorder. She will be called closer to February to schedule colonoscopy. She has the prep. The LInzess at 290mcg is moving her bowels well. She saw [facility] mg[facility] and is progressing with them. ROV 6 weeks. [facility] Medical History TOBIAS (obstructive sleep apnea) Somnolence, daytime Myotonic dystrophy Asthma Restrictive lung disease COPD (chronic obstructive pulmonary disease) Dyspnea on exertion Thyroid nodule Hypothyroidism Surgical History Hx of cardiac catheterization History of esophagogastroduodenoscopy (EGD) H/O colonoscopy History of lymph node excision Hx of cardiac pacemaker Hx of hysterectomy Family History Father HTN (hypertension) Diabetes mellitus Mother Cancer Pancreas cancer Maternal Uncle Colon cancer Social History Household Members: Children Household Members Other:: daughter Alcohol intake: never Patient Tobacco Use Status: Former Tobacco user Years Smoked: 1991 Review of Systems Const Denies fatigue, Denies fever(s), Denies night sweats, Denies poor appetite and Denies weight loss ENT Reports Normal hearing present, Denies dental pain, Reports dysphagia, Denies hearing loss, Denies mouth pain, Denies odynophagia, Denies throat swelling, Denies tongue swelling and Reports other (Dentition adequate) Card Reports no additional complaints Resp Reports no additional complaints GI Denies abdominal pain, Denies melena, Denies bloating, Denies hematochezia, Reports constipation, Denies GI cramping, Reports dysphagia, Denies excessive flatus, Denies early satiety, Reports heartburn, Denies diarrhea, Denies nausea, Denies odynophagia, Denies vomiting and Denies hematemesis Skin/Breast Denies pruritus, Denies lesions, Denies rash and Denies jaundice Neuro Reports Normal hearing present and Denies Abnormal speech present Endo Denies fatigue Aller/Immun Denies throat swelling and Denies tongue swelling Physical Exam Vital Signs: Last Vital Signs Pulse 75 11/02/22 11:47 BP 139/67 11/02/22 11:47 BMI result Body Mass Index 38.5 Const General: cooperative, no acute distress, well developed and well groomed Nutritional Appearance: well nourished and obese Orientation/consciousness: oriented to person, oriented to place and oriented to time Limitations: language barrier HEENT Head: Yes normocephalic and Yes atraumatic Eyes General: appearance normal, both eyes and all related structures Pupils: Equal, round and reactive pupils present Neck Neck: Yes normal visual inspection and Yes no lymphadenopathy Thyroid: Thyroid normal Resp Effort & Inspection: normal respiratory effort and able to speak in complete sentences Auscultation: clear to auscultation bilaterally Cardio Rate: regular rate Rhythm: regular rhythm Heart sounds: Normal, physiologic split S2 sound present Peripheral pulses: radial pulses present and posterior tibial pulses present GI Inspection: No distended, Yes Abdominal panniculus present and Yes obesity Palpation (GI): Soft to palpation, nontender, no guarding, not rigid and No hepatosplenomegaly present Percussion: Yes normal to percussion Auscultation: normal bowel sounds Rectal Exam - Female: deferred Skin General skin exam: no rashes or lesions noted, turgor normal, skin not dry, no jaundice, No spider nevi and no striae Rashes: no rashes Nails: normal Neuro General: oriented to person, oriented to place and oriented to time Cranial nerves: Yes Equal, round and reactive pupils present and Yes Normal hearing present Speech: No Abnormal speech present Extrem General: Yes normal to inspection, No clubbing, No cyanosis and No edema Psych Appearance: grossly normal and well kempt Mental Status: mental status grossly normal Speech and movement: Normal speech and movement present Affect: normal affect Attitude: cooperative Thought process: Normal thought process present and not confabulating Thought content: Normal thought content present Insight: Limited insight present (Psych) Judgement: Limited judgement present (Psych) Assessment & Plan Assessment & Plan (1) Erosive esophagitis: Code(s): K22.10 - Ulcer of esophagus without bleeding Plan: [place] #Marivel LIve She received the lansoprazole, but it did not work well at all and she did better on the Aciphex. I will try getting this 2 tabs bid. She is taking the carafate liquid, and she finds this helpful, but I again educate her that we can not expand the timing of this medication or it will interfere with other medications. She still struggles with swallowing, and is c/o waking up with either a white/white tongue or a black tongue. White could be the carafate, but I am unsure about the black. 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 She sees Dr. Wheat for the neuro. She has the feeling of gastric contents in the throat when she lays down, and we discuss using risers under the HOB. This condition is difficult to control given the multifatorial nature of the disorder. She will be called closer to February to schedule colonoscopy. She has the prep. The LInzess at 290mcg is moving her bowels well. She saw [facility] and is progressing with them. ROV 6 weeks. 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 Wheat Code(s): G71.11 - Myotonic muscular dystrophy (3) GERD (gastroesophageal reflux disease): Code(s): K21.9 - Gastro-esophageal reflux disease without esophagitis (4) Chronic idiopathic constipation: Code(s): K59.04 - Chronic idiopathic constipation (5) Oropharyngeal dysphagia: Comment: Myotonic muscular dystrophy Gastrointestinal involvement ? In DM1, smooth muscle involvement is more common than in other muscular dystrophies and manifests particularly with gastrointestinal (GI) symptoms such as colicky abdominal pain, constipation, diarrhea, and pseudo-obstruction [120]. Irritable bowel-like symptoms (abdominal pain, bloating, and changes in bowel habits) are common in DM1. Upper GI tract involvement is seen in most patients with classic DM1 and leads to dysphagia with resulting aspiration pneumonia, an important cause of morbidity and mortality in DM1. Gallstones also occur in DM1 because of increased tone of the gall bladder sphincter. The presence and severity of GI disturbances in DM1 correlate poorly with the degree of skeletal muscle involvement, and correlate positively with the duration of skeletal muscle disease [121]. Code(s): R13.12 - Dysphagia, oropharyngeal phase Medications: New rabeprazole (AcipHex) 40 mg (2 x 20 mg) PO BID 120 tabs 6RF K22.10 - Ulcer of esophagus without bleeding Discontinued lansoprazole Discontinued Reason: Doctor's Order 30 mg PO BID 60 caps 6RF K22.10 - Ulcer of esophagus without bleeding, R13.12 - Dysphagia, oropharyngeal phase Coding Level of Care Code Est Pt Level 3 (77941) Diagnoses Erosive esophagitis K22.10 Myotonic dystrophy G71.11 GERD (gastroesophageal reflux disease) K21.9 Chronic idiopathic constipation K59.04 Oropharyngeal dysphagia R13.12
[2022-11-02 11:47] VITALS: BP 139/67; PULSE 75; BMI 38.5
== END 2022-11-02 12:56 | disposition home or self-care (01) ==
PROVIDERS: PCP Internal Medicine; Visit Provider Nurse Practitioner
DX: K22.10 Ulcer of esophagus without bleeding (principal); G71.11 Myotonic muscular dystrophy; K21.9 Gastro-esophageal reflux disease without esophagitis; K59.04 Chronic idiopathic constipation; R13.12 Dysphagia, oropharyngeal phase
CPT/HCPCS: 99213

== ENCOUNTER → 2022-11-02 11:36 | Outpatient (BNVA) | payer OTHER, SELFPAY | PROVIDERS: PCP Internal Medicine; Visit Provider Nurse Practitioner | DX: K22.10 Ulcer of esophagus without bleeding (principal); K21.9 Gastro-esophageal reflux disease without esophagitis; G71.11 Myotonic muscular dystrophy; K59.04 Chronic idiopathic constipation; R13.12 Dysphagia, oropharyngeal phase | CPT/HCPCS: 99212 ==

== ENCOUNTER → 2022-11-29 09:34 | Outpatient (REF) | payer OTHER, SELFPAY | LOC: HO.SL 09:34 | PROVIDERS: PCP Internal Medicine; Visit Provider Internal Medicine | DX: E66.01 Morbid (severe) obesity due to excess calories (principal); R40.0 Somnolence; R06.83 Snoring; G47.33 Obstructive sleep apnea (adult) (pediatric) | CPT/HCPCS: 95806 ==

== ENCOUNTER → 2022-11-29 09:47 | Outpatient (BNV) | payer OTHER, SELFPAY | PROVIDERS: PCP Internal Medicine; Visit Provider Internal Medicine | DX: G47.33 Obstructive sleep apnea (adult) (pediatric) (principal) | CPT/HCPCS: 95806 ==

== ENCOUNTER 2022-12-21 13:48 | Outpatient (AMB) | payer OTHER, SELFPAY ==
--- NOTE | 2022-12-21 13:51 | MHC.OFFVIS ---
Intake Vital Signs 12/21/22 14:07 Height 5 ft Weight 197 lb 1.492 oz BMI 38.5 BP 119/78 Blood Pressure Location Rt brachial Position Sitting Pulse 69 Intake Visit Reasons: 6 week follow up Intake Note: Jerilyn presents to in office visit today in 6 weeks follow up of GERD. CC: Patient c/o acid reflux, epigastric pain, heartburn, and nausea. She states the epigastric pain is constant. She states she is having regular BMs with medication. Denies other GI symptoms today. Hazard Mitigation Officer Required: Yes Hazard Mitigation Officer Language: Kazakh Accompanied by: Self / Same As Patient Allergies nifedipine Allergy (Severe, Verified 12/21/22 14:14) Hypotension baclofen Adverse Reaction (Severe, Uncoded 12/21/22 14:14) tachycardia HPI 6 week follow up HPI Details Assessment & Plan (1) Erosive esophagitis: Code(s): K22.10 - Ulcer of esophagus without bleeding Plan: [place] #Marivel LIve She received the lansoprazole, but it did not work well at all and she did better on the Aciphex. I will try getting this 2 tabs bid. She is taking the carafate liquid, and she finds this helpful, but I again educate her that we can not expand the timing of this medication or it will interfere with other medications. She still struggles with swallowing, and is c/o waking up with either a white/white tongue or a black tongue. White could be the carafate, but I am unsure about the black. 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 She sees Dr. Wheat for the neuro. She has the feeling of gastric contents in the throat when she lays down, and we discuss using risers under the HOB. This condition is difficult to control given the multifatorial nature of the disorder. She will be called closer to February to schedule colonoscopy. She has the prep. The LInzess at 290mcg is moving her bowels well. She saw [facility] and is progressing with them. ROV 6 weeks. 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 Wheat Code(s): G71.11 - Myotonic muscular dystrophy (3) GERD (gastroesophageal reflux disease): Code(s): K21.9 - Gastro-esophageal reflux disease without esophagitis (4) Chronic idiopathic constipation: Code(s): K59.04 - Chronic idiopathic constipation (5) Oropharyngeal dysphagia: Comment: Myotonic muscular dystrophy Gastrointestinal involvement ? In DM1, smooth muscle involvement is more common than in other muscular dystrophies and manifests particularly with gastrointestinal (GI) symptoms such as colicky abdominal pain, constipation, diarrhea, and pseudo-obstruction [120]. Irritable bowel-like symptoms (abdominal pain, bloating, and changes in bowel habits) are common in DM1. Upper GI tract involvement is seen in most patients with classic DM1 and leads to dysphagia with resulting aspiration pneumonia, an important cause of morbidity and mortality in DM1. Gallstones also occur in DM1 because of increased tone of the gall bladder sphincter. The presence and severity of GI disturbances in DM1 correlate poorly with the degree of skeletal muscle involvement, and correlate positively with the duration of skeletal muscle disease [121]. Code(s): R13.12 - Dysphagia, oropharyngeal phase Medications: New rabeprazole (AcipHex) 40 mg (2 x 20 mg) PO BID 120 tabs 6RF K22.10 - Ulcer of esophagus without bleeding Discontinued lansoprazole Discontinued Reason: Doctor's Order 30 mg PO BID 60 caps 6RF K22.10 - Ulcer of esophagus without bleeding, R13.12 - Dysphagia, oropharyngeal phase TODAY'S VISIT [place] #Mariah Olivo Her stomach has been very bad over the past week. She has mid sternal discomfort so that even my bra hurts and a lot of acid brash. She cannot identify any factors that suddenly changed such as medication changes, diet changes or proceeding illness. A review of her medications seems to show that her Carafate may have dropped off. Adding back in carafate liquid at noon. She continues on her Linzess 290 and says she is moving her bowels well and she continues taking 40 mg of AcipHex twice a day. He I again chief counsel her to put blocks under the head of her bed since she does have myotonic dystrophy that can cause weakness of the swallowing muscles and this will help prevent aspiration. This is the 2nd time I have gone over it to try to have her remember to do this since it will protect her future health and is a relatively simple intervention. We are waiting until closer to February to schedule her repeat colonoscopy. Return office visit in 4 weeks. [facility] Medical History TOBIAS (obstructive sleep apnea) Somnolence, daytime Myotonic dystrophy Asthma Restrictive lung disease COPD (chronic obstructive pulmonary disease) Dyspnea on exertion Thyroid nodule Hypothyroidism Surgical History Hx of cardiac catheterization History of esophagogastroduodenoscopy (EGD) H/O colonoscopy History of lymph node excision Hx of cardiac pacemaker Hx of hysterectomy Family History Father HTN (hypertension) Diabetes mellitus Mother Cancer Pancreas cancer Maternal Uncle Colon cancer Social History Household Members: Children Household Members Other:: daughter Alcohol intake: never Patient Tobacco Use Status: Former Tobacco user Years Smoked: 1991 Review of Systems Const Denies fatigue, Denies fever(s), Denies night sweats, Denies poor appetite, Reports weight gain and Denies weight loss ENT Reports Normal hearing present, Denies dental pain, Denies dysphagia, Denies hearing loss, Denies mouth pain, Denies odynophagia, Denies throat swelling, Denies tongue swelling and Reports other (Dentition adequate) Card Reports no additional complaints Resp Reports no additional complaints GI Denies abdominal pain, Denies melena, Denies bloating, Denies hematochezia, Reports constipation, Denies GI cramping, Denies dysphagia, Denies excessive flatus, Denies early satiety, Reports heartburn, Denies diarrhea, Denies nausea, Denies odynophagia, Denies vomiting and Denies hematemesis Skin/Breast Denies pruritus, Denies lesions, Denies rash and Denies jaundice Neuro Reports Normal hearing present and Denies Abnormal speech present Endo Denies fatigue Aller/Immun Denies throat swelling and Denies tongue swelling Physical Exam Vital Signs: Last Vital Signs Pulse 69 12/21/22 14:07 BP 119/78 12/21/22 14:07 BMI result Body Mass Index 38.5 Const General: cooperative, no acute distress, well developed and well groomed Nutritional Appearance: well nourished and obese Orientation/consciousness: oriented to person, oriented to place and oriented to time Limitations: language barrier HEENT Head: Yes normocephalic and Yes atraumatic Eyes General: appearance normal, both eyes and all related structures Pupils: Equal, round and reactive pupils present Neck Neck: Yes normal visual inspection and Yes no lymphadenopathy Thyroid: Thyroid normal Resp Effort & Inspection: normal respiratory effort and able to speak in complete sentences Auscultation: clear to auscultation bilaterally Cardio Rate: regular rate Rhythm: regular rhythm Heart sounds: Normal, physiologic split S2 sound present Peripheral pulses: radial pulses present and posterior tibial pulses present GI Inspection: No distended, No Abdominal panniculus present and Yes obesity Palpation (GI): Soft to palpation, nontender, no guarding, not rigid and No hepatosplenomegaly present Percussion: Yes normal to percussion Auscultation: normal bowel sounds Rectal Exam - Female: deferred Skin General skin exam: no rashes or lesions noted, turgor normal, skin not dry, no jaundice, No spider nevi and no striae Rashes: no rashes Nails: normal Neuro General: oriented to person, oriented to place and oriented to time Cranial nerves: Yes Equal, round and reactive pupils present and Yes Normal hearing present Speech: No Abnormal speech present Extrem General: Yes normal to inspection, No clubbing, No cyanosis and No edema Psych Appearance: grossly normal and well kempt Mental Status: mental status grossly normal Speech and movement: Normal speech and movement present Affect: normal affect Attitude: cooperative Thought process: Normal thought process present and not confabulating Thought content: Normal thought content present Insight: Limited insight present (Psych) Judgement: Limited judgement present (Psych) Assessment & Plan Assessment & Plan (1) GERD (gastroesophageal reflux disease): Code(s): K21.9 - Gastro-esophageal reflux disease without esophagitis Plan: [place] #Mariah Live Her stomach has been very bad over the past week. She has mid sternal discomfort so that even my bra hurts and a lot of acid brash. She cannot identify any factors that suddenly changed such as medication changes, diet changes or proceeding illness. A review of her medications seems to show that her Carafate may have dropped off. Adding back in carafate liquid at noon. She continues on her Linzess 290 and says she is moving her bowels well and she continues taking 40 mg of AcipHex twice a day. I asked how she is doing with weight management and she says ?my weight keeps going up and up. ? this may be a contributing factor to controlling her reflux. She says they are talking to her about potential gastric bypass surgery. He I again chief counsel her to put blocks under the head of her bed since she does have myotonic dystrophy that can cause weakness of the swallowing muscles and this will help prevent aspiration. This is the 2nd time I have gone over it to try to have her remember to do this since it will protect her future health and is a relatively simple intervention. We are waiting until closer to February to schedule her repeat colonoscopy. Return office visit in 4 weeks. (2) Chronic idiopathic constipation: Code(s): K59.04 - Chronic idiopathic constipation (3) Tubular adenoma of colon: Comment: 06/2022 scope poor prep repeat 6-8 months Code(s): D12.6 - Benign neoplasm of colon, unspecified (4) Erosive esophagitis: Code(s): K22.10 - Ulcer of esophagus without bleeding Medications: New sucralfate (Carafate) 10 mL PO QNOON 1,000 mL 6RF K22.10 - Ulcer of esophagus without bleeding Discontinued sucralfate Discontinued Reason: Doctor's Order 20 mL PO BEDTIME 840 mL 0RF K22.10 - Ulcer of esophagus without bleeding Coding Level of Care Code Est Pt Level 3 (66203) Diagnoses GERD (gastroesophageal reflux disease) K21.9 Chronic idiopathic constipation K59.04 Tubular adenoma of colon D12.6 Erosive esophagitis K22.10
[2022-12-21 14:07] VITALS: BP 119/78; PULSE 69; BMI 38.5
== END 2022-12-21 14:39 | disposition home or self-care (01) ==
LOC: HO.HGI 13:48
PROVIDERS: PCP Internal Medicine; Visit Provider Nurse Practitioner
DX: K21.9 Gastro-esophageal reflux disease without esophagitis (principal); K59.04 Chronic idiopathic constipation; D12.6 Benign neoplasm of colon, unspecified; K22.10 Ulcer of esophagus without bleeding
CPT/HCPCS: 99213

== ENCOUNTER → 2022-12-21 13:48 | Outpatient (BNVA) | payer OTHER, SELFPAY | PROVIDERS: PCP Internal Medicine; Visit Provider Nurse Practitioner | DX: K21.9 Gastro-esophageal reflux disease without esophagitis (principal); K59.04 Chronic idiopathic constipation; K22.10 Ulcer of esophagus without bleeding; D12.6 Benign neoplasm of colon, unspecified | CPT/HCPCS: 99212 ==

== ENCOUNTER 2022-12-26 09:05 | Outpatient (AMB) | payer OTHER, SELFPAY ==
--- NOTE | 2022-12-26 09:13 | MHC.OFFVIS ---
Intake Vital Signs 12/26/22 09:17 Height 5 ft Weight 196 lb BMI 38.3 BP 132/84 Blood Pressure Location Rt brachial Position Sitting Pulse 71 Pulse Source Pulse Oximeter Pulse Oximetry (%) 96 Oxygen Delivery Method Room Air Intake Visit Reasons: sleep study results/sleep study 11/29 Intake Note: pt is here for sleep study results, and states she is feeling good, but states some short of breath with walking long distance. Manager Utilization Required: Yes Manager Utilization Name: Sophie Allergies nifedipine Allergy (Severe, Verified 12/26/22 09:19) Hypotension baclofen Adverse Reaction (Severe, Uncoded 12/26/22 09:19) tachycardia Do you need a note to return to daycare/school/sports/work: No HPI sleep study results/sleep study 11/29 HPI Details 57 YEARS OLD VERY PLEASANT, TONGAN-SPEAKING FEMALE IS BACK FOR FOLLOW-UP. SHE DID HAVE SLEEP STUDY ON 11/29/2022. BREATHING IS SAME WITH INTERMITTENT FEELING OF CHEST TIGHTNESS AND SHORTNESS OF BREATH. SHE IS A KNOWN CASE OF MILD OBSTRUCTIVE AIRWAY DISORDER, WITH GOOD RESPONSE. TO BRONCHODILATOR THERAPY SHE USES PROAIR 2 PUFFS A FEW TIMES DURING THE DAY IF NEEDED. SHE HAS USUAL MILD INTERMITTENT COUGH. SLEEP REMAINS DISTURBED AT NIGHT. HOME-BASED SLEEP STUDY SHOWED ONLY BORDERLINE SLEEP APNEA. [facility] Medical History TOBIAS (obstructive sleep apnea) Somnolence, daytime Myotonic dystrophy Asthma Restrictive lung disease COPD (chronic obstructive pulmonary disease) Dyspnea on exertion Thyroid nodule Hypothyroidism Surgical History Hx of cardiac catheterization History of esophagogastroduodenoscopy (EGD) H/O colonoscopy History of lymph node excision Hx of cardiac pacemaker Hx of hysterectomy Family History Father HTN (hypertension) Diabetes mellitus Mother Cancer Pancreas cancer Maternal Uncle Colon cancer Social History Household Members: Children Household Members Other:: daughter Alcohol intake: never Patient Tobacco Use Status: Former Tobacco user Years Smoked: 1991 Review of Systems Const All systems reviewed & are unremarkable except as noted in HPI and below Eyes Reports no additional complaints ENT Reports no additional complaints Card Denies chest pain, Denies irregular heart rhythm and Denies leg edema Resp Reports as per HPI Reports no additional complaints Musc Reports no additional complaints Skin/Breast Reports system reviewed and no additional complaints, except as documented Neuro Reports no additional complaints Psych Reports depression (Mild controlled) Endo Reports other (Hypothyroidism being treated) Ramón/Lymph Reports no additional complaints Aller/Immun Reports no additional complaints Physical Exam Vital Signs: Last Vital Signs Pulse 71 12/26/22 09:17 BP 132/84 12/26/22 09:17 Pulse Ox 96 12/26/22 09:17 Oxygen Delivery Method Room Air 12/26/22 09:17 BMI result Body Mass Index 38.3 Const Other: SHE DOES HAVE ROUNDED FACE, AND SOMEWHAT SHORT NECK. General: comfortable, no acute distress, alert and awake Orientation/consciousness: patient oriented x3 HEENT Head: Yes normal to inspection General nose exam: No nasal polyps present and No nasal discharge present Face and sinus: Yes sinuses nontender Mouth: oropharynx abnormals (TONGUE IS PLACED BACK, OROPHARYNX IS CROWDED, MALLAMPATI CLASS 4) Throat: Yes posterior oropharynx normal Eyes General: appearance normal, both eyes and all related structures Neck Neck: Yes normal visual inspection, Yes no lymphadenopathy, Yes trachea midline, Yes no JVD and Yes other (NECK SIZE 15-1/2 INCH) Thyroid: Thyroid normal Chest Chest palpation & inspection: normal inspection of the chest, normal palpation of entire chest wall and no tenderness Resp Other: Percussion note is resonant, she has equal breath sounds on both sides. The breath sounds are slightly distant and decreased over the bases. No wheezes or crepitations are heard. Cardio Palpation: normal PMI Rate: regular rate Rhythm: regular rhythm Heart sounds: no gallops and no murmurs GI Palpation (GI): Soft to palpation, nontender, No hepatosplenomegaly present and no masses Auscultation: normal bowel sounds Back/Spine/Pelvis Thoracic/Lumbar Spine: thoracic and lumbar spine normal to inspection Skin General skin exam: no rashes or lesions noted Neuro General: patient oriented x3 and no focal motor deficits Cranial nerves: Yes CN's II-XII intact bilaterally Extrem General: Yes normal to inspection, Yes no clubbing, cyanosis or edema and Yes no calf tenderness Psych Appearance: grossly normal and well kempt Speech and movement: Normal speech and movement present Results Reviewed Results Reviewed: RESULTS OF HOME-BASED SLEEP STUDY REVIEWED WITH THE PATIENT. MOST OF THE SLEEP WAS IN SUPINE POSITION AND SUPINE AHI 4.6. LATERAL POSITION AHI 5.9. AND ALTOGETHER HER TOTAL SLEEP TIME AHI IS 5 SNORING FOR 36% OF THE SLEEP TIME Assessment & Plan Assessment & Plan (1) TOBIAS (obstructive sleep apnea): Comment: PATIENT DOES HAVE HISTORY OF THE SLEEP DISTURBANCE AT NIGHT WITH SNORING. HOME SLEEP TEST REVEALS ONLY MILD/BORDERLINE SLEEP APNEA WITH TOTAL SLEEP TIME AHI 5 AND SNORING FOR 36% OF THE SLEEP TIME. EXPLAINED THE RESULTS TO THE PATIENT. I THINK SHE SHOULD TREAT THIS WITH CONSERVATIVE MEASURES, ESPECIALLY WITH WEIGHT REDUCTION. INSTRUCTED TO LOSE ABOUT 10 LB OF WEIGHT IN THE NECK IS 2-3 MONTHS. ALSO INSTRUCTED TO SLEEP IN LATERAL POSITION MUCH. POSSIBLE USING CPAP WOULD NOT BE, OF MUCH HELP AT THIS TIME. Code(s): G47.33 - Obstructive sleep apnea (adult) (pediatric) (2) COPD (chronic obstructive pulmonary disease): Comment: CHEST XRAY NORMAL PFT : MILD RESTRICTIVE PATTERN, BUT GOOD RESPONSE TO BRONCHODILATOR THERAPY, SUGGESTING MILD BRONCHIAL ASTHMA/REACTIVE AIRWAYS. TX: OK TO USE PROAIR 2 PUFFS Q 4-6 HOURS ONLY P.R.N.. Code(s): J44.9 - Chronic obstructive pulmonary disease, unspecified Coding Level of Care Code Est Pt Level 3 (71779) Diagnoses TOBIAS (obstructive sleep apnea) G47.33 COPD (chronic obstructive pulmonary disease) J44.9
[2022-12-26 09:17] VITALS: BP 132/84; PULSE 71; O2SAT 96; BMI 38.3
== END 2022-12-26 09:35 | disposition home or self-care (01) ==
PROVIDERS: PCP Internal Medicine; Visit Provider Internal Medicine
DX: G47.33 Obstructive sleep apnea (adult) (pediatric) (principal); J44.9 Chronic obstructive pulmonary disease, unspecified
CPT/HCPCS: 99213

== ENCOUNTER → 2022-12-26 09:05 | Outpatient (BNVA) | payer OTHER, SELFPAY | PROVIDERS: PCP Internal Medicine; Visit Provider Internal Medicine | DX: G47.33 Obstructive sleep apnea (adult) (pediatric) (principal); J44.9 Chronic obstructive pulmonary disease, unspecified | CPT/HCPCS: 99212 ==

== ENCOUNTER 2022-12-28 13:50 | Outpatient (REF) | payer OTHER, SELFPAY ==
[2022-12-28 16:42] LABS: Urine Cytology See Pathology rpt
== END 2022-12-28 13:51 | disposition home or self-care (01) ==
LOC: HO.LAB 13:50
PROVIDERS: PCP Internal Medicine; Visit Provider Urology
DX: N39.0 Urinary tract infection, site not specified (principal); R30.0 Dysuria; R39.15 Urgency of urination; Z87.440 Personal history of urinary (tract) infections; Z87.448 Personal history of other diseases of urinary system
CPT/HCPCS: 51701; 81003; 87086; 88112; 99202

== ENCOUNTER 2022-12-28 13:50 | Outpatient (AMB) | payer OTHER, SELFPAY ==
--- NOTE | 2022-12-28 13:56 | A.OFFVIS_ITS ---
Intake Intake Visit Reasons: Recurrent UTIs Intake Note: NEW Patient presents today to established treatment for Recurrent UTI's: Meds- None Allergies to Antibiotic- No Known Allergies Blood Thinner- None Group Manager Required: No Accompanied by: Other Relationship Allergies nifedipine Allergy (Severe, Verified 12/28/22 13:57) Hypotension baclofen Adverse Reaction (Severe, Uncoded 12/28/22 13:57) tachycardia HPI HPI Comments History of Present Illness Details Jerilyn is a 57-year-old Bahamian-speaking female. Here is a new patient evaluation for recurrent UTI's. Former nicotine use. A certified product support engineer was present during the visit. 12/28/2022-- PMH is significant for TOBIAS, myotonic dystrophy. She is status post hysterectomy due to endometriosis. She had a UTI about a month ago. She was treated with antibiotics, but states she did not complete the entire course of 10 days and only took it for five days. She developed bladder symptoms again after about 2 weeks. She then completed the other 5 days of the antibiotic that was left from the previous course. She states she still has burning with urination as well as urgency and occasional urine leakage. 12/28/22: Pelvic exam: There is no signi ficant prolapse. Vaginal atrophy noted. A catheterized urine will be sent for culture. ?UA?12/28/22 ? Blood: 80 Woo/uL, Leukocyte: 125 Eric/uL. Plan Prescribed Bactrim DS 1 tab twice a day for seven days empirically pending c/s. Renal US prior was ordered. Urine culture prior was ordered Urine cytology prior was ordered. Follow-up office cystoscopy. [facility] Medical History (Updated 12/28/22 @ 15:32 by Alen Arango MD) UTI (urinary tract infection) TOBIAS (obstructive sleep apnea) Somnolence, daytime Myotonic dystrophy Asthma Restrictive lung disease COPD (chronic obstructive pulmonary disease) Dyspnea on exertion Thyroid nodule Hypothyroidism Surgical History Hx of cardiac catheterization History of esophagogastroduodenoscopy (EGD) H/O colonoscopy History of lymph node excision Hx of cardiac pacemaker Hx of hysterectomy Family History Father HTN (hypertension) Diabetes mellitus Mother Cancer Pancreas cancer Maternal Uncle Colon cancer Social History Household Members: Children Household Members Other:: daughter Alcohol intake: never Patient Tobacco Use Status: Former Tobacco user Years Smoked: 1991 Review of Systems Const All systems reviewed & are unremarkable except as noted in HPI and below Reports no additional complaints Eyes Reports no additional complaints ENT Reports no additional complaints Card Reports no additional complaints Resp Reports no additional complaints GI Reports no additional complaints Musc Reports no additional complaints Skin/Breast Reports system reviewed and no additional complaints, except as documented Neuro Reports no additional complaints Psych Reports no additional complaints Endo Reports no additional complaints Ramón/Lymph Reports no additional complaints Aller/Immun Reports no additional complaints Physical Exam Const General: healthy appearing, no acute distress and well developed Orientation/consciousness: patient oriented x3 HEENT Head: Yes normocephalic and Yes atraumatic Eyes Conjunctivae: conjunctivae normal Neck Neck: Yes normal visual inspection Chest Chest palpation & inspection: normal inspection of the chest Resp Effort & Inspection: normal respiratory effort Cardio Rate: regular rate GI Inspection: Yes normal to inspection Palpation (GI): Soft to palpation General: No no CVA tenderness External Female Exam: normal external appearance Speculum Exam - Vagina: vagina atrophic Back/Spine/Pelvis Back: No no CVA tenderness Skin General skin exam: no rashes or lesions noted Neuro General: patient oriented x3 Extrem General: Yes no pedal edema Psych Appearance: grossly normal Affect: normal affect Office Procedures Bladder/Catheter Procedure Details: Under sterile technique a 14 [place] catheter was passed transurethrally, 5 mL urine drained [id number] Bladder Catheter Procedure code (CPT) selection complete Results AMB Urinalysis, Automated UA Leukoctes 125 Eric/uL Last Edit by MICHAEL Camarena on 12/28/22 14:09 2+ Hong Stewart 12/28/22 14:09 UA Nitrite Negative Last Edit by MICHAEL Camarena on 12/28/22 14:09 UA Urobilinogen 0.2 mg/dL Last Edit by Hong Stewart [facility] on 12/28/22 14:0 9 UA Protein 30 mg/dL Last Edit by Hong Stewart [facility] on 12/28/22 14:09 1+ Hong Stewart 12/28/22 14:09 UA pH 6.0 Last Edit by Hong Stewart [facility] on 12/28/22 14:09 UA Blood 80 Woo/uL Last Edit by Hong Stewart, A on 12/28/22 14:09 2+ Hong Stewart 12/28/22 14:09 UA Specific [place] 1.025 Last Edit by Hong Stewart [facility] on 12/28/22 14: 09 UA Ketone Negative Last Edit by Hong Stewart [facility] on 12/28/22 14:09 UA Bilirubin 1 mg/dL Last Edit by Hong Stewart [facility] on 12/28/22 14:09 1+ Hong Stewart 12/28/22 14:09 UA Glucose 0 mg/dL Last Edit by Hong Stewart [facility] on 12/28/22 14:09 Results Reviewed Results Reviewed: Laboratory Last Values Urine pH (Auto) 6.0 12/28/22 14:04 Specific [place] (Auto) 1.025 12/28/22 14:04 Urine Protein (Auto) 30 mg/dL 12/28/22 14:04 Glucose (UA)(Auto) 0 mg/dL 12/28/22 14:04 Urine Ketones (Auto) Negative 12/28/22 14:04 Urine Blood (Auto) 80 Woo/uL 12/28/22 14:04 Urine Nitrite (Auto) Negative 12/28/22 14:04 Urine Bilirubin (Auto) 1 mg/dL 12/28/22 14:04 Urine Urobilinogen (Auto) 0.2 mg/dL 12/28/22 14:04 Leukocyte Esterase (Auto) 125 Eric/uL 12/28/22 14:04 Assessment & Plan Assessment & Plan (1) Recurrent UTI: Code(s): N39.0 - Urinary tract infection, site not specified (2) Urgency of micturition: Code(s): R39.15 - Urgency of urination (3) Dysuria: Code(s): R30.0 - Dysuria Plan Prescribed Bactrim DS 1 tab twice a day for seven days. Renal US prior was ordered. Urine culture prior was ordered Urine cytology prior was ordered. Follow-up office cystoscopy. Orders: Orders Urine Culture 12/28/22 N39.0 - Urinary tract infection, site not specified Urine Cytology 12/28/22 N39.0 - Urinary tract infection, site not specified, Z87.440 - Personal history of urinary (tract) infections, Z87.448 - Personal history of other diseases of urinary system AMB Urinalysis Automated 12/28/22 Z13.9 - Encounter for screening, unspecified US renal BI 12/28/22 N39.0 - Urinary tract infection, site not specified, R30.0 - Dysuria, R39.15 - Urgency of urination AMB Bladder/Catheter Procedure 12/28/22 N39.0 - Urinary tract infection, site not specified Medications: New sulfamethoxazole-trimethoprim 800-160 mg (Bactrim DS) 1 tab PO BID 14 tabs 0RF Patient Instructions: The patient had an opportunity to ask questions regarding treatment plan. All questions were answered. Imaging, Laboratory studies and physical exam results were discussed and reviewed in detail. No major barriers to understanding were identified. The patient expressed understanding and agreement with the above treatment plan. The patient is aware they should contact our office by phone for worsening of their current condition or the appearance of new symptoms. Compliance is encouraged with any medications and followup testing that is ordered. It is a privilege to be allowed the opportunity to participate in the urologic care of your patient. If you have any questions or concerns regarding treatment for the above conditions please do not hesitate to contact me. The office telephone contact is [phone]. This note is constructed in part using voice recognition software. While every effort has been made to ensure accuracy serials librarian errors may have been included. Yours sincerely, Alen Arango MD Coding Level of Care Code New Pt Level 4 (80320) Diagnoses Recurrent UTI N39.0 Urgency of micturition R39.15 Dysuria R30.0 CPT Codes Bladder/Catheter Procedure - CPT: 19920-Oelbfb Bladder Catheter ([id number])
== END 2022-12-28 14:44 | disposition home or self-care (01) ==
PROVIDERS: PCP Internal Medicine; Visit Provider Urology
DX: N39.0 Urinary tract infection, site not specified (principal); R39.15 Urgency of urination; R30.0 Dysuria
CPT/HCPCS: 51701; 99204

== ENCOUNTER 2023-01-30 10:45 | Outpatient (REF) | payer OTHER, SELFPAY ==
--- NOTE | ~2023-01-30 | US_ITS ---
EXAMINATION: US RETROPERITONEAL LIMITED (RENAL ONLY) CLINICAL INFORMATION: Urinary tract infection, site not specified. COMPARISON: Ultrasound abdomen complete 12/14/2021. TECHNIQUE: Real-time imaging of the kidneys. FINDINGS: RIGHT KIDNEY: 11.4 x 4.2 x 5.5 cm (SAG x AP x TRV). The kidney is normal in size, contour, and echogenicity. Renal cortical thickness is normal. No calculi or focal parenchymal lesions. No hydronephrosis. LEFT KIDNEY: 10.9 x 4.7 x 5.3 cm (SAG x AP x TRV). The kidney is normal in size, contour, and echogenicity. Renal cortical thickness is normal. No calculi or focal parenchymal lesions. No hydronephrosis. Partially imaged liver appears echogenic suggestive of hepatic steatosis or underlying liver disease. This could be further characterized with a dedicated right upper quadrant ultrasound if clinically indicated. US/US renal BI IMPRESSION: Unremarkable sonographic appearance of the kidneys. Partially imaged liver appears echogenic suggestive of hepatic steatosis or underlying liver disease. This could be further characterized with a dedicated right upper quadrant ultrasound if clinically indicated..
== END 2023-01-30 10:46 | disposition home or self-care (01) ==
LOC: HO.US 10:45
PROVIDERS: PCP Internal Medicine; Visit Provider Urology
DX: N39.0 Urinary tract infection, site not specified (principal); R30.0 Dysuria; R39.15 Urgency of urination
CPT/HCPCS: 76775